=== PATIENT | male | born 1945 | race Caucasian/White ===

== ENCOUNTER 2017-06-25 13:12 | Outpatient (RCR) | payer MEDICARE, OTHER, SELFPAY ==
[2017-06-25 13:31] LABS: Prothrombin Time Fingerstick 22.3 SEC (11.9-14.4)
== END 2017-06-25 13:30 | disposition home or self-care (01) ==
LOC: LAB 13:12
PROVIDERS: Family Provider Family Medicine Geriatric Medicine; PCP Family Medicine Geriatric Medicine; Visit Provider Family Medicine Geriatric Medicine
DX: R69 Illness, unspecified (principal)
CPT/HCPCS: 36416; 85610

== ENCOUNTER 2017-08-03 12:24 | Outpatient (RCR) | payer MEDICARE, OTHER, SELFPAY ==
[2017-08-03 12:46] LABS: Prothrombin Time Fingerstick 33.1 SEC (11.9-14.4)
== END 2017-08-03 13:00 | disposition home or self-care (01) ==
LOC: LAB 12:24
PROVIDERS: Family Provider Family Medicine Geriatric Medicine; PCP Family Medicine Geriatric Medicine; Visit Provider Family Medicine Geriatric Medicine
DX: I48.0 Paroxysmal atrial fibrillation (principal)
CPT/HCPCS: 36416; 85610

== ENCOUNTER → 2017-08-07 10:02 | Outpatient (CLI) | payer MEDICARE, OTHER, SELFPAY ==
[2017-08-07 10:48] LABS: Absolute Lymphocyte Count 1.46 X10^3/ul (0.83-4.51); Basophil# 0.07 X10^3/uL; Basophil% 1.4 % (0-1); Eosinophil# 0.19 X10^3/uL; Eosinophils% 3.8 % (0-5); Hematocrit 40.8 % (40-54); Hemoglobin 14.4 g/dl (13.0-16.5); Lymphocyte # 1.46 X10^3/ul (4.0); Lymphocyte % 28.9 % (19-41); Mean Corp Hgb Conc 35.3 g/gl (32-36); Mean Corpuscular Hgb 31.5 pg (27.0-32.0); Mean Corpuscular Volume 89.3 fL (80-94); Mean Platelet Vol. 10.5 fl (6.2-12.0); Monocyte# 0.35 X10^3/uL; Monocyte% 6.9 % (0-10); Neutrophil # 2.97 X10^3/uL (2.7-7.7); Neutrophil % 58.8 % (47-70); Platelet Count 155 K/mm3 (150-450); RBC Distribution Width CV 13.6 % (11.6-14.6); RBC Distribution Width SD 43.7 fl (35.1-43.9); Red Blood Count 4.57 M/mm3 (4.6-6.2); White Blood Count 5.1 K/mm3 (4.4-11.0)
[2017-08-07 10:49] LABS: POSITIVE COUNT NO; POSITIVE DIFFERENTIAL NO; POSITIVE MORPHOLOGY NO
[2017-08-07 11:13] LABS: ALB/GLOB Ratio 0.8 RATIO (0.9-2.4); AST(SGOT) 22 U/L (15-37); Alanine Aminotransfer ALT/SGPT 21 U/L (16-61); Albumin, Serum 3.3 g/dL (3.2-5.0); Alkaline Phosphatase 108 U/L (45-117); Anion Gap 8 (5-15); BUN 20 mg/dL (7-18); BUN/Creat Ratio 13.7 RATIO (10-20); Calcium,Total 7.9 mg/dL (8.5-10.1); Chloride 97 mmol/L (98-107); Creatinine, Serum 1.46 mg/dL (0.70-1.30); EST Glomerular Filtration Rate 51 mL/min (>60); Est Glom Filt Rate - Afr Amer 61 mL/min (>60); Globulin 4.2 g/dL (2.2-4.2); Glucose 535 mg/dL (74-106); Potassium 4.5 mmol/L (3.5-5.1); Protein, Total 7.5 g/dL (6.4-8.2); Sodium Level 132 mmol/L (136-145); Thyroid Stim Hormone (TSH) 2.31 uIU/mL (0.358-3.74)
== END ==
PROVIDERS: Family Provider Family Medicine Geriatric Medicine; PCP Family Medicine Geriatric Medicine; Visit Provider Family Medicine Geriatric Medicine
DX: E11.9 Type 2 diabetes mellitus without complications (principal); I10 Essential (primary) hypertension
CPT/HCPCS: 36415; 80053; 84443; 85025

== ENCOUNTER 2017-10-07 13:47 | Outpatient (RCR) | payer MEDICARE, OTHER, SELFPAY ==
[2017-10-07 14:05] LABS: Prothrombin Time Fingerstick 27.5 SEC (11.9-14.4)
== END 2017-10-07 14:00 | disposition home or self-care (01) ==
LOC: LAB 13:47
PROVIDERS: Family Provider Family Medicine Geriatric Medicine; PCP Family Medicine Geriatric Medicine; Visit Provider Family Medicine Geriatric Medicine
DX: I48.0 Paroxysmal atrial fibrillation (principal)
CPT/HCPCS: 36416; 85610

== ENCOUNTER 2017-11-27 09:51 | Outpatient (RCR) | payer MEDICARE, OTHER, SELFPAY | END 2017-11-27 11:00 | disposition home or self-care (01) | LOC: LAB 09:51 | PROVIDERS: Family Provider Family Medicine Geriatric Medicine; PCP Family Medicine Geriatric Medicine; Visit Provider Family Medicine Geriatric Medicine | DX: I48.0 Paroxysmal atrial fibrillation (principal) | CPT/HCPCS: 36416; 85610 ==

== ENCOUNTER 2018-02-10 08:32 | Outpatient (RCR) | payer MEDICARE, OTHER, SELFPAY ==
[2018-02-10 08:50] LABS: Prothrombin Time Fingerstick 32.3 SEC (11.9-14.4)
[2018-02-10 12:40] LABS: Absolute Lymphocyte Count 1.76 X10^3/ul (0.83-4.51); Absolute Neutrophil Count 2.9 X10^3/uL (2.0-7.7); Basophil# 0.06 X10^3/uL; Basophil% 1.1 % (0-1); Eosinophil# 0.21 X10^3/uL; Hemoglobin 15.7 g/dl (13.0-16.5); Lymphocyte # 1.76 X10^3/ul (4.0); Lymphocyte % 33.3 % (19-41); Mean Corp Hgb Conc 35.7 g/gl (32-36); Mean Corpuscular Hgb 31.6 pg (27.0-32.0); Mean Corpuscular Volume 88.5 fL (80-94); Mean Platelet Vol. 11.3 fl (6.2-12.0); Monocyte# 0.38 X10^3/uL; Monocyte% 7.2 % (0-10); Neutrophil # 2.86 X10^3/uL (2.7-7.7); Neutrophil % 54.2 % (47-70); POSITIVE COUNT NO; POSITIVE DIFFERENTIAL NO; POSITIVE MORPHOLOGY NO; Platelet Count 161 K/mm3 (150-450); RBC Distribution Width SD 45.5 fl (35.1-43.9); Red Blood Count 4.97 M/mm3 (4.6-6.2); White Blood Count 5.3 K/mm3 (4.4-11.0)
[2018-02-10 13:11] LABS: Vitamin D,25 Hydroxy 14.1 ng/mL (29.95-100.01)
[2018-02-10 13:34] LABS: ALB/GLOB Ratio 0.9 RATIO (0.9-2.4); AST(SGOT) 17 U/L (15-37); Alanine Aminotransfer ALT/SGPT 23 U/L (16-61); Albumin, Serum 3.8 g/dL (3.2-5.0); Alkaline Phosphatase 98 U/L (45-117); Anion Gap 14 (5-15); BUN 24 mg/dL (7-18); BUN/Creat Ratio 15.2 RATIO (10-20); Calcium,Total 9.2 mg/dL (8.5-10.1); Chloride 96 mmol/L (98-107); Creatinine, Serum 1.58 mg/dL (0.70-1.30); EST Glomerular Filtration Rate 46 mL/min (>60); Est Glom Filt Rate - Afr Amer 56 mL/min (>60); Globulin 4.2 g/dL (2.2-4.2); Glucose 460 mg/dL (74-106); Potassium 4.3 mmol/L (3.5-5.1); Sodium Level 137 mmol/L (136-145); Thyroid Stim Hormone (TSH) 2.77 uIU/mL (0.358-3.74)
[2018-02-12 08:48] LABS: Hep C Antibodies <0.1 s/co ratio (0.0-0.9)
== END 2018-02-10 10:00 | disposition home or self-care (01) ==
LOC: LAB 08:32
PROVIDERS: Family Provider Family Medicine Geriatric Medicine; PCP Family Medicine Geriatric Medicine; Visit Provider Family Medicine Geriatric Medicine
DX: I48.0 Paroxysmal atrial fibrillation (principal); E11.9 Type 2 diabetes mellitus without complications; E55.9 Vitamin D deficiency, unspecified; I10 Essential (primary) hypertension; Z13.89 Encounter for screening for other disorder
CPT/HCPCS: 36416; 80053; 82306; 84443; 85025; 85610; 86803

== ENCOUNTER 2018-04-09 09:55 | Outpatient (RCR) | payer MEDICARE, OTHER, SELFPAY ==
[2018-04-09 10:06] LABS: Prothrombin Time Fingerstick 24.5 SEC (11.9-14.4)
== END 2018-04-30 11:31 | disposition home or self-care (01) ==
LOC: LAB 09:55
PROVIDERS: Family Provider Family Medicine Geriatric Medicine; PCP Family Medicine Geriatric Medicine; Referring Provider Family Medicine Geriatric Medicine; Visit Provider Family Medicine Geriatric Medicine
DX: I48.0 Paroxysmal atrial fibrillation (principal)
CPT/HCPCS: 36416; 85610

== ENCOUNTER 2018-06-09 11:18 | Outpatient (RCR) | payer MEDICARE, OTHER, SELFPAY ==
[2018-06-09 11:35] LABS: Prothrombin Time Fingerstick 19.9 SEC (11.9-14.4)
== END 2018-06-09 12:18 | disposition home or self-care (01) ==
LOC: LAB 11:18
PROVIDERS: Family Provider Family Medicine Geriatric Medicine; PCP Family Medicine Geriatric Medicine; Referring Provider Family Medicine Geriatric Medicine; Visit Provider Family Medicine Geriatric Medicine
DX: I48.0 Paroxysmal atrial fibrillation (principal)
CPT/HCPCS: 36416; 85610

== ENCOUNTER 2018-08-18 13:12 | Outpatient (RCR) | payer MEDICARE, OTHER, SELFPAY ==
[2018-08-18 13:25] LABS: Prothrombin Time Fingerstick 27.4 SEC (11.9-14.4)
== END 2018-08-18 14:12 | disposition home or self-care (01) ==
LOC: LAB 13:12
PROVIDERS: Family Provider Family Medicine Geriatric Medicine; PCP Family Medicine Geriatric Medicine; Referring Provider Family Medicine Geriatric Medicine; Visit Provider Family Medicine Geriatric Medicine
DX: I48.0 Paroxysmal atrial fibrillation (principal)
CPT/HCPCS: 36416; 85610

== ENCOUNTER 2019-02-04 15:11 | Outpatient (RCR) | payer MEDICARE, OTHER, SELFPAY ==
[2019-02-04 16:09] LABS: Prothrombin Time Fingerstick 23.8 SEC (11.9-14.4)
== END 2019-02-04 16:00 | disposition home or self-care (01) ==
LOC: LAB 15:11
PROVIDERS: Family Provider Family Medicine Geriatric Medicine; PCP Family Medicine Geriatric Medicine; Referring Provider Family Medicine Geriatric Medicine; Visit Provider Family Medicine Geriatric Medicine
DX: I48.0 Paroxysmal atrial fibrillation (principal)
CPT/HCPCS: 36416; 85610

== ENCOUNTER → 2019-02-11 08:36 | Outpatient (CLI) | payer MEDICARE, OTHER, SELFPAY ==
[2019-02-11 12:18] LABS: Absolute Lymphocyte Count 1.86 X10^3/uL (0.83-4.51); Absolute Neutrophil Count 3.6 X10^3/uL (2.0-7.7); Basophil# 0.05 X10^3/uL; Basophil% 0.8 % (0-1); Eosinophils% 3.2 % (0-5); Hematocrit 46.1 % (40-54); Hemoglobin 15.9 g/dL (13.0-16.5); Lymphocyte # 1.86 X10^3/ul (4.0); Lymphocyte % 29.9 % (19-41); Mean Corp Hgb Conc 34.5 g/dL (32-36); Mean Corpuscular Hgb 30.4 pg (27.0-32.0); Mean Corpuscular Volume 88.1 fL (80-94); Mean Platelet Vol. 11.2 fl (6.2-12.0); Monocyte# 0.44 X10^3/uL; Monocyte% 7.1 % (0-10); NRBC Flagged by Analyzer 0 % (0-5); Neutrophil # 3.64 X10^3/uL (2.7-7.7); Neutrophil % 58.5 % (47-70); Platelet Count 158 K/mm3 (150-450); RBC Distribution Width CV 13.6 % (11.6-14.6); RBC Distribution Width SD 43.8 fl (35.1-43.9); Red Blood Count 5.23 M/mm3 (4.6-6.2); White Blood Count 6.2 K/mm3 (4.4-11.0)
[2019-02-11 13:21] LABS: Vitamin D,25 Hydroxy 10.3 ng/mL (29.95-100.01)
[2019-02-11 14:59] LABS: ALB/GLOB Ratio 0.8 RATIO (0.9-2.4); AST(SGOT) 17 U/L (15-37); Alanine Aminotransfer ALT/SGPT 22 U/L (16-61); Albumin, Serum 3.5 g/dL (3.2-5.0); Alkaline Phosphatase 84 U/L (45-117); Anion Gap 9 (5-15); BUN 21 mg/dL (7-18); BUN/Creat Ratio 16.4 RATIO (10-20); Calcium,Total 8.8 mg/dL (8.5-10.1); Chloride 106 mmol/L (98-107); Creatinine, Serum 1.28 mg/dL (0.70-1.30); EST Glomerular Filtration Rate 59 mL/min (>60); Est Glom Filt Rate - Afr Amer 71 mL/min (>60); Globulin 4.2 g/dL (2.2-4.2); Glucose 328 mg/dL (74-106); Protein, Total 7.7 g/dL (6.4-8.2); Sodium Level 140 mmol/L (136-145)
== END ==
PROVIDERS: Family Provider Family Medicine Geriatric Medicine; PCP Family Medicine Geriatric Medicine; Visit Provider Family Medicine Geriatric Medicine
DX: E11.9 Type 2 diabetes mellitus without complications (principal); I10 Essential (primary) hypertension; E55.9 Vitamin D deficiency, unspecified
CPT/HCPCS: 36415; 80053; 82306; 84443; 85025

== ENCOUNTER 2019-05-10 13:25 | Outpatient (RCR) | payer MEDICARE, OTHER, SELFPAY ==
[2019-05-11 09:30] LABS: Prothrombin Time Fingerstick 16.8 SEC (11.9-14.4)
== END 2019-05-10 18:00 | disposition home or self-care (01) ==
LOC: LAB 13:25
PROVIDERS: Family Provider Family Medicine Geriatric Medicine; PCP Family Medicine Geriatric Medicine; Referring Provider Family Medicine Geriatric Medicine; Visit Provider Family Medicine Geriatric Medicine
DX: I48.0 Paroxysmal atrial fibrillation (principal)
CPT/HCPCS: 36416; 85610

== ENCOUNTER 2020-02-22 16:50 | Inpatient (IN) | payer MEDICARE, OTHER, SELFPAY ==
[2020-02-22 17:03] VITALS: BP 119/56; PULSE 62; RESP 16; TEMP 36.5; O2SAT 98; BMI 33.6; BMI 33.7
[2020-02-22 18:11] LABS: Bedside Glucose 232 mg/dL (70-110)
[2020-02-22] MEDS: Insulin Lispro 100 UNIT/ML INSULN.PEN SC (21:24)
[2020-02-22] MEDS: Carvedilol 12.5 MG Tablet PO (21:29)
[2020-02-22] MEDS: levETIRAcetam 1,000 MG Tablet 1000 MG PO (21:29)
[2020-02-22] MEDS: Atorvastatin Calcium 40 MG Tablet PO (21:29)
[2020-02-22] MEDS: Na Biphos/Potassium Phosphate PACKET 1 PACKET PO (21:30)
[2020-02-22] MEDS: Senna/Docusate Sodium 1 Tablet PO (21:30)
[2020-02-22 22:00] VITALS: BP 124/56; PULSE 68; RESP 17; TEMP 36.6; O2SAT 99
[2020-02-22 23:06] LABS: Bedside Glucose 280 mg/dL (70-110)
--- NOTE | 2020-02-23 05:07 | NURSING ---
first bladder scan completed and value was 698cc, pt be straight cathed as per protocol
--- NOTE | 2020-02-23 05:38 | NURSING ---
Pt BS for 698 mL after toileting. Straight cathed 1,080mL urine output with 0mL BS. Pt tolerated well.
[2020-02-23 06:00] LABS: Absolute Lymphocyte Count 1.38 X10^3/uL (0.83-4.51); Absolute Neutrophil Count 4.3 X10^3/uL (2.0-7.7); Basophil# 0.04 X10^3/uL; Basophil% 0.6 % (0-1); Eosinophil# 0.16 X10^3/uL; Eosinophils% 2.4 % (0-5); Hematocrit 29.4 % (40-54); Hemoglobin 9.9 g/dL (13.0-16.5); Lymphocyte # 1.38 X10^3/ul (4.0); Lymphocyte % 20.9 % (19-41); Mean Corp Hgb Conc 33.7 g/dL (32-36); Mean Corpuscular Hgb 29.3 pg (27.0-32.0); Mean Platelet Vol. 8.9 fl (6.2-12.0); Monocyte# 0.69 X10^3/uL; Monocyte% 10.5 % (0-10); NRBC Flagged by Analyzer 0 % (0-5); Neutrophil # 4.28 X10^3/uL (2.7-7.7); Neutrophil % 64.8 % (47-70); Platelet Count 149 K/mm3 (150-450); RBC Distribution Width CV 16.9 % (11.6-14.6); RBC Distribution Width SD 52.6 fl (35.1-43.9); Red Blood Count 3.38 M/mm3 (4.6-6.2); White Blood Count 6.6 K/mm3 (4.4-11.0)
[2020-02-23 06:37] LABS: Anion Gap 6 (5-15); BUN 26 mg/dL (7-18); BUN/Creat Ratio 21.1 RATIO (10-20); Calcium,Total 8.7 mg/dL (8.5-10.1); Chloride 102 mmol/L (98-107); Creatinine, Serum 1.23 mg/dL (0.70-1.30); EST Glomerular Filtration Rate 61 mL/min (>60); Est Glom Filt Rate - Afr Amer 74 mL/min (>60); Estimated Creatinine Clearance 59.55 ml/min; Glucose 222 mg/dL (74-106); Magnesium 2.1 mg/dL (1.6-2.6); Phosphorus 2.8 mg/dL (2.5-4.9); Potassium 4.3 mmol/L (3.5-5.1); Sodium Level 134 mmol/L (136-145)
[2020-02-23 07:31] LABS: Bedside Glucose 247 mg/dL (70-110)
--- NOTE | 2020-02-23 08:13 | NURSING ---
pt called out requesting breakfast and when told that was npo for poss speech aba became very upset at mold laminator. stated, you got to be shitting me?? i ate last night!? then became angry at staff lashing out and told mold laminator to 'get the fuck out of here then! attempting to reach speech and dr. arizmendi regarding.
[2020-02-23 09:41] VITALS: BP 137/72; PULSE 76; RESP 16; TEMP 36.9; O2SAT 94
[2020-02-23] MEDS: Insulin Lispro 100 UNIT/ML INSULN.PEN SC ×3 (10:07→16:58)
[2020-02-23] MEDS: Carvedilol 12.5 MG Tablet PO (10:08)
[2020-02-23] MEDS: Losartan Potassium 100 MG Tablet PO (10:08)
[2020-02-23] MEDS: levETIRAcetam 1,000 MG Tablet 1000 MG PO (10:08)
[2020-02-23] MEDS: Na Biphos/Potassium Phosphate PACKET 1 PACKET PO (10:08)
--- NOTE | 2020-02-23 10:33 | PCM.HP.STD ---
Problem List (1) Subdural hematoma Status: Acute Comment: BL (2) Hx of craniotomy Status: Acute Comment: on 02/15/20 at [facility] for subdural hematomas with brain compression (3) Anemia Status: Acute Qualifiers: Anemia type: unspecified type Qualified Code(s): D64.9 - Anemia, unspecified (4) BPH (benign prostatic hyperplasia) Status: Chronic Qualifiers: Lower urinary tract symptom presence: symptoms present Lower urinary tract symptom detail: incomplete bladder emptying Qualified Code(s): N40.1 - Benign prostatic hyperplasia with lower urinary tract symptoms; R39.14 - Feeling of incomplete bladder emptying (5) DM (diabetes mellitus), type 2 Status: Chronic Qualifiers: Diabetes mellitus exterminator helper insulin use: with exterminator helper use Diabetes mellitus complication status: with hyperglycemia Qualified Code(s): E11.65 - Type 2 diabetes mellitus with hyperglycemia; 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 Ablation for SVT in October 2010. (16) Tobacco dependence in remission Status: Chronic Comment: quit in 1971. Has a 10 Pack year hx. (17) Chronic anticoagulation Status: Chronic Comment: on warfarin (18) Non-compliance Status: Chronic Comment: with diet (19) Obesity (BMI 30.0-34.9) Status: Chronic (20) History of permanent cardiac pacemaker placement Status: Chronic (21) LVH (left ventricular hypertrophy) Status: Chronic (22) LAE (left atrial enlargement) Status: Acute Comment: mild (23) Thrombocytopenia Status: Acute (24) Hyponatremia Status: Acute (25) Chronic renal failure, stage 3 (moderate) Status: Chronic (26) Abnormal tilt table test Status: Inactive Comment: in the past (27) AICD (automatic cardioverter/defibrillator) present Status: Chronic (28) Poor dentition Status: Chronic History of Present Illness Date of Admission: 02/22/20 Chief Complaint: Debility due to recent BL craniotonies for BL subdural hematomas with brain compression and AMS, dysarthria, dysphagia, focal seizures and encephalopathy. Transferred from [facility] Mr. Proctor is a 74 year old M with a past medical history of hypertension, diabetes mellitus type 2, BPH, idiopathic normal pressure hydrocephalus, history of TRADER FIXED INCOME shunt in 2010, obesity, VTE with PE and DVT on chronic anticoagulation with warfarin, ventricular ectopy, SVT, 2 ablations for ventricular ectopy and one ablation for SVT, history of pacemaker implantation, nonischemic cardiomyopathy with a 45% ejection fraction in 2014, chronic renal failure stage III, tobacco dependence in remission (quit in 1971), left ventricular hypertrophy and mild left atrial enlargement presented to the emergency department at [facility] on 02/13/2020 with confusion, dysarthria and twitching of his face. CT scan of the head showed bilateral subdural hematomas and he was transferred to [facility]. At presentation to [facility] he had continuous left facial twitching and was started on Keppra for seizures. On 02/15/2020 he underwent bilateral craniotomies to evacuate the hematomas and relieve brain compression. He was transferred to the acute rehab unit at [facility] on 02/22/2024 greater than 3 hours of therapy daily to restore him at or near his prior level of independence. Past Medical History Past Medical History (Chronic Problems): Chronic Problems BPH (benign prostatic hyperplasia) (Chronic) DM (diabetes mellitus), type 2 (Chronic) History of ventriculoperitoneal shunting (Chronic) 2010 for NPH Cardiomyopathy (Chronic) non-ischemic. 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 Ablation for SVT in October 2010. 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 Has a 10 Pack year hx. Chronic anticoagulation (Chronic) on warfarin Non-compliance (Chronic) with diet Obesity (BMI 30.0-34.9) (Chronic) History of permanent cardiac pacemaker placement (Chronic) LVH (left ventricular hypertrophy) (Chronic) Chronic renal failure, stage 3 (moderate) (Chronic) AICD (automatic cardioverter/defibrillator) present (Chronic) Poor dentition (Chronic) Allergies ceftriaxone Allergy (Verified 01/26/15 13:00) Hives fish oil Allergy (Verified 02/13/15 07:50) Unknown Gadolinium-MRI Contrast Medium [CONTRAST] Allergy (Verified 02/13/15 07:50) Anaphylaxis Home Medications: Ambulatory Orders Medication Instructions Recorded Aspirin [Aspirin, Baby] 81 mg PO DAILY@0800 01/26/15 Atorvastatin Calcium [Lipitor] 80 mg PO QHS 01/26/15 Carvedilol [Coreg (Beta Leigh)] 12.5 mg PO BID 01/26/15 Insulin U-500 [Humulin R U-500 20 units SC BIDAC 01/26/15 ([facility])] Losartan Potassium [Cozaar] 100 mg PO DAILY 01/26/15 Warfarin Sodium [Coumadin] 10 mg PO TUTH 01/26/15 Warfarin [Coumadin] 7.5 mg PO SUMOWEFRSA 01/26/15 Magnesium l-Lactate [Mag-Tab Sr] 84 mg PO DAILY #30 tablet.er 01/27/15 Furosemide [Lasix] 40 mg PO DAILY 02/13/15 Glucosam/Mohamud-Msm1/C/Isac/Bosw 1 each PO BID 02/13/15 [Glucosamine-Chondroitin Tablet] Surgical History: - - Ablation in October of 2010 for SVT, ablations for ventricular ectopy in January 2011 and September 2011. TRADER FIXED INCOME shunt in 2010. Psychiatric History: No pertinent psych hx Lives: Spouse/ Significant Other - Fiona Smoking Status: Former smoker - quit in 1971 Tobacco Use: Cigarettes Alcohol: None Drugs: None - *Family History Maternal History Items: Diabetes, High Cholesterol, Heart Disease, Hypertension, - - Thyroid disease Paternal History Items: Heart Disease, Hypertension Sibling History Items: Heart Disease - His brother has had several MIs. Offspring History Items: - - hjis son has also had blood clots Review of Systems Constitutional: Reports: Weakness. Denies: Anorexia, Chills, Fever, Weight Change Eyes: Denies: Vision Change HEENT: Reports: Head Aches. Denies: Difficulty Hearing, Difficulty Swallowing, Nasal Congestion, Sinus Congestion, Sinus Drainage, Sore Throat Cardiovascular: Reports: Edema. Denies: Chest Pain, Light Headedness, Orthopnea, Palpitations Respiratory: Reports: Shortness of breath upon exertion. Denies: Cough, Shortness of breath at rest, Sputum production Gastrointestinal: Denies: Abdominal Pain, Constipation, Diarrhea, Nausea, Vomiting Genitourinary: Reports: Nocturia - X1 at home. He denies hesitancy, dribbling, hematuria, urinary incontinence.. Denies: Dysuria, Hematuria, Hesitancy, Incontinence, Urgency Musculoskeletal: Denies: Joint Pain, Joint Tenderness, Muscle pain, Neck Pain Skin: Reports: Jaundice, Wounds - he has BL craniotomy incisions temporal occipital areas. Denies: Rash Neurological: Reports: Balance problems, Seizures - new onset due to BL SDH's and brain compression. Denies: Double vision, Change in Speech, Slurred speech, Focal weakness, Numbness, Tingling Psychiatric: Denies: Anxiety, Depression, Homicidal Ideations, Suicidal Ideations Endocrine: Denies: Hx of Thyroiditis Hematologic/ Lymphatic: Reports: Hx of blood clot. Denies: Easy Bruising, Easy Bleeding VTE Information - Inpt Only VTE Present on Admission: No VTE Mechan Device Prophylaxis: SCD's, Knee High ANDREAS Hose VTE Pharm Prophylaxis ordered?: No Reason prophylaxis not ordered:: Treatment Not Indicated - He just had BL craniotomies for BL subdural hematomas. He is to have no anticoagulation until he is seen in follow up by the neurosurgeon Patient Problems: Active and Suspected Problems Subdural hematoma (Acute) BL Hx of craniotomy (Acute) BL on 02/15/20 at [facility] for BL subdural hematomas with brain compression Anemia (Acute) Dysphagia (Acute) Seizure disorder (Acute) due to BL SDH's with brain compressions Urine retention (Acute) LAE (left atrial enlargement) (Acute) mild Thrombocytopenia (Acute) Hyponatremia (Acute) - Physical Exam Vitals/I&O's: Vital Signs Temp Pulse Resp BP Pulse Ox 98.4 F 76 16 137/72 H 94 02/23/20 09:41 02/23/20 09:41 02/23/20 09:41 02/23/20 09:41 02/23/20 09:41 Oxygen Delivery Method Room Air Weight: 255 lb 3.2 oz Body Mass Index (BMI) 33.6 Intake and Output for Last 24 Hours 02/21/20 02/22/20 02/23/20 23:59 23:59 23:59 Intake Total 180 / 300 120 / 120 Output Total 1580 / 1580 Balance 180 / 0 -1460 / -1460 General: Alert, Oriented x3, Cooperative, No apparent distress, Well developed, Well nourished, - - sitting in the recliner at the bedside. He speaks to me with his eyes closed the whole time. He is irritable. His affect is very flat. HEENT: Atraumatic, PERRLA, EOMI, Normocephalic, - - The hub of the TRADER FIXED INCOME shunt is present under the skin of the R frontal area. Oral: Dry Mucosa, - - many missing and broken off teeth Neck: Supple, No JVD, Negative Carotid Bruits, No Nodes, No Nuchal Rigidity, Trachea Midline Lungs: Clear to auscultation, No rhonchi, No wheeze, No rales, Diminished Cardiovascular: Regular rate, Regular Rhythm, Normal S1, Normal S2, No murmurs, No Ectopic Activity, No rub noted, No Gallop Abdomen: Bowel Sounds Present, Soft, Non Tender, Non-Distended, Obese Extremities: No clubbing, No cyanosis, Capillary Refill Less than 3 Seconds, No Calf Tenderness, Diminished Peripheral Pulses - In the feet. The radial pulses are 3/3 BL, Edema Skin: No rashes, No breakdown Musculoskeletal: No Tenderness to Palpation of Joints or Extremities, No Muscle Wasting, Arthritic Changes Neurological: Cranial nerves II-XII grossly intact, Neuro grossly intact Psych/Mental Status: Flat Affect, Depressed Laboratory Results 02/22/20 18:04: POC Glucose 232 H 02/22/20 21:24: POC Glucose 280 H 02/23/20 05:42: WBC 6.6, RBC 3.38 L, Hgb 9.9 L, Hct 29.4 L, MCV 87.0, MCH 29.3, MCHC 33.7, RDW Std Deviation 52.6 H, RDW Coeff of Crys 16.9 H, Plt Count 149 L, MPV 8.9, Immature Gran % (Auto) 0.800, Neut % (Auto) 64.8, Lymph % (Auto) 20.9, [place] % (Auto) 10.5 H, Eos % (Auto) 2.4, Baso % (Auto) 0.6, Absolute Neuts (auto) 4.3, Absolute Lymphs (auto) 1.38, Nucleated RBC % 0 02/23/20 05:42: Sodium 134 L, Potassium 4.3, Chloride 102, Carbon Dioxide 26.0, Anion Gap 6, BUN 26 H, Creatinine 1.23, Estim Creat Clear Calc 59.55, Est GFR (MDRD) Af Amer 74, Est GFR (MDRD) Non-Af 61, BUN/Creatinine Ratio 21.1 H, Glucose 222 H, Calcium 8.7, Phosphorus 2.8, Magnesium 2.1 02/23/20 07:24: POC Glucose 247 H Current Medications Acetaminophen (Tylenol) 650 mg PO Q4H PRN PRN PRN Reason: Pain Score 1-10/10 Atorvastatin Calcium (Lipitor) 40 mg PO QHS REPLACED BY [facility] Last Admin: 02/22/20 21:29 Dose: 40 mg Documented by: Bisacodyl (Dulcolax) 10 mg RECTAL .PRN X 1 PRN PRN Reason: Constipation Carvedilol (Coreg) 12.5 mg PO BID REPLACED BY [facility] Last Admin: 02/23/20 10:08 Dose: 12.5 mg Documented by: Dextrose (D50w Syringe) 0 gm IV X1 PRN; Protocol PRN Reason: Hypoglycemia Glucagon () 1 mg IM .X1 PRN PRN Reason: Hypoglycemia Insulin Glargine (Lantus ([facility])) 10 units SC BREAKFAST REPLACED BY [facility] Last Admin: 02/23/20 10:07 Dose: 10 u Documented by: Insulin Human Lispro (Humalog Kwikpen ([facility])) 0 unit SC ACHS REPLACED BY [facility]; Protocol Last Admin: 02/23/20 10:07 Dose: 4 u Documented by: Levetiracetam (Keppra Tablet) 1,000 mg PO BID REPLACED BY [facility] Last Admin: 09/24/20 10:08 Dose: 1,000 mg Documented by: Losartan Potassium (Cozaar) 100 mg PO DAILY REPLACED BY [facility] Last Admin: 02/23/20 10:08 Dose: 100 mg Documented by: Magnesium Hydroxide (Milk Of Magnesia) 30 ml PO .PRN X 1 PRN PRN Reason: Constipation Nitroglycerin (Nitrostat) 0.4 mg SUBLINGUAL Q5M PRN PRN Reason: CARDIAC/CHEST PAIN Potassium Phos/Sodium Phos (Neutra-Phos Packet) 1 packet PO BID REPLACED BY [facility] Last Admin: 02/23/20 10:08 Dose: 1 packet Documented by: Senna/Docusate Sodium (Senokot-S, Ruthann-Colace) 1 tablet PO BID REPLACED BY [facility] Last Admin: 02/23/20 10:05 Dose: Not Given Documented by: Tamsulosin HCl (Flomax) 0.4 mg PO DAILY@1730 REPLACED BY [facility] Assessment/Plan All Active Problems Subdural hematoma (Acute) Hx of craniotomy (Acute) Anemia (Acute) Dysphagia (Acute) Seizure disorder (Acute) Urine retention (Acute) LAE (left atrial enlargement) (Acute) Thrombocytopenia (Acute) Hyponatremia (Acute) CHF exacerbation (Acute) SOB (shortness of breath) (Acute) Impressions 1. Debility secondary to recent bilateral subdural hematomas requiring bilateral craniotomies to evacuate the hematomas and relieve brain compression. Neurologic symptoms included confusion, dysarthria, dysphagia and focal seizures. 2. chronic anticoagulation for recurrent DVT's/PE - with Warfarin 3. HX of ventricular ectopy and SVT - has had a total of 3 ablations 4. hx of PM/AICD 5. 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 Hypertension 7. Diabetes mellitus type 2 8. History of BPH on Flomax-the first post void residual was greater than 1000. 9. History of a positive tilt table test in the past 10. Obesity 11. New onset seizure disorder secondary to bilateral subdural hematomas with compression of the brain 12. Normal pressure hydrocephalus-idiopathic 13. History of TRADER FIXED INCOME shunt placed in 2010 14. Acute normochromic normocytic anemia-more likely than not secondary to blood loss 15. Dysphagia 16. Left ventricular hypertrophy and mild left atrial enlargement on echocardiogram in 2014 17. Mild thrombocytopenia 18. Very poor dentition with multiple missing teeth and many broken off. 19. Chronic renal failure stage III 20. Tobacco dependence in remission-quit in 1971 PLAN PT for gait stability OT for ADL's ST for evaluation Analgesics as needed Bowel protocol Fall precautions Assess for Anxiety/Depression GI prophylaxis not necessary at this time as he is asymptomatic and has no history of peptic ulcer disease DVT prophylaxis with ANDREAS hart and SCDs. Neurosurgery wants no anticoagulants, even DVT prophylaxis, until he is seen again in the office. Follow up with PCP, neurosurgery following DC from [facility] AM lab reviewed including CMP, CBC, Mag and Phos Hemoglobin A1c Consider an antidepressant-will discuss with the patient and his going forward Continue to check PVRs and if his retention continues will need a Khan catheter and adjustment in medications for BPH Sliding scale insulin to keep blood sugars less than 130 fasting and less than 180 postprandial He admits to following no diet at home and he also does not check his BS's We discussed having a dialogue with his dentist regarding pulling his carious teeth. He has a TRADER FIXED INCOME shunt and also a pacemaker/AICD and with poor dentition and multiple missing and broken off teeth he is at risk for infection. Request records from Dr. Ketty Partida - his PCP in [facility] may be making him tired and can cause change in affect......continue to monitor Inpatient E&M: [id number] Init Hosp L3
[2020-02-23 11:50] LABS: Bedside Glucose 325 mg/dL (70-110)
--- NOTE | 2020-02-23 14:40 | REHABEVAL_ITS ---
Admission Information Primary Diagnosis:: Debility secondary to recent bilateral subdural hematomas with brain compression requiring bilateral craniotomies at [facility]. Status Changes from Prescreening?: No changes Identified Actual Problem List:: Bleeding, Skin Intergrity, Pain, ALteration in Cmfrt, Depression, Mobility Impaired, Self Care Deficit, Diabetes, Hyperglycemia, BP, Hypertension, Fluid Change-Dehydration, Alteration-Leisure Activ. Potential Problem List:: DVT, Bleeding, Infection, UTI, Aspiration, Falls, Skin Integrity, Depression Risk of Complications DVT: ANDREAS Hose, Sequential Compression Device Bleeding: Monitor Lab Values, Nursing to Teach Precautions for anti-coagulation therapy., Wound, if applicable, to be assessed every shift., Stroke patients assessed for lethargy or change in status. Infection: Clinical Staff to Monitor for S/S of infection:, S/S of infection include fever, redness, warmth, etc. Urinary Tract Infection: Monitor for frequency, burning, discomfort, or incontinence., Nursing will obtain urine sample for urinalysis and C&S when ordered. Aspiration: Clinical staff will monitor for coughing, drooling, congestion., Speech will evaluate swallowing and dsyphasia., Nursing will monitor patient swallowing during meals. Falls: Patient will be evaluated for Fall Precautions, Patient will be placed on Fall Precautions as indicated per protocol. Skin Breakdown: Nursing will assess skin daily using assessment tool., Nursing will place on Skin Breakdown Precautions as indicated. Pain: Clinical staff will assess patient's pain level per protocol., Medications will be given, if needed, and the pain level reassessed., Other methods: Massage, distraction, decrease stimulus, etc. used PRN. Plan of Care Patient requires physician specializing in physical medicine and rehab oversight to provide close medical supervision of rehab issues including: Pain Management, Sleep Problems, Bowel and Bladder, Medical and co-morbidity Management, DVT prophylaxis, Rehabilitation Leadership, Coordination of treatment team Patient needs Physical Therapy: For a minimum of 1 hour, At least 5 out of 7 days Patient needs Physical Therapy to improve:: Mobility, Mobility, Mobility, Strengthening, Transfers, Stretching, ROM, Endurance, Stairs, Gait, Balance Patient needs Occupational Therapy: For a minimum of 1 hour, At least 5 out of 7 days Patient needs Occupational Therapy to improve ADL's incl.: Eating, Grooming, Bathing, Dressing, Toileting, Toilet transfers, Community Reintegration, Higher functioning activities, Household tasks, Adaptive Equipment, Splinting, Other activities as determined Patient requires speech therapy: For a minimum of 1 hour, At least 5 out of 7 days Patient requires speech therapy for: Swallowing, Cognition, Language Skills, Compensatory Strategies Patient requires 24/7 Rehabilitation Nursing for: Pain Issues, Identifying and preventing risk factors, Monitoring and reporting current medical conditions, Assisting with ambulation, transfer, and all ADL's, Teaching patients about disease process and medications, Family teaching, Providing safe environment, Bowel and Bladder Issues, Skin integrity, Medication Management Patient needs Siebel Architect/ Case Management for: Discharge Planning, Arranging Home Equipment or Services, Family Interventions Patient needs Dietary and Nutrition Services for: Adequate Nutrition, Nutritional Supplements, Nutritional Education Goals Patient will remain: free from falls, or injury at time of discharge. Patient will perform bed mobility at: MOD I level of assist. Patient will complete transfers from bed to chair at: MOD I level of assist. Patient will ambulate: 100 feet, with MOD I assist, with LRD Patient will complete upper body dressing at: MOD I level of assist. Patient will complete lower body dressing at: MOD I level of assist. Patient will complete toileting at: MOD I level of assist. Patient will perform bathing at: MOD I level of assist. Patient will complete grooming at: MOD I level of assist. Patient will complete home management skills at: MOD I level of assist. Patient will achieve: 12 stairs, at MOD I assist Patient will have pain level of: of 3 or less Patient's skin will: remain intact, free from infection. Patient will receive: adequate nutrition. Discharge Planning Pt Prognosis for Sig. Practical Improv. w/in Reasonable Time: Good Estimated Length of stay (days): 12 Anticipated D/C Destination: Home Was Preadmission Assessment Accurate?: Yes
[2020-02-23 15:46] LABS: AST(SGOT) 19 U/L (15-37); Alanine Aminotransfer ALT/SGPT 13 U/L (16-61); Albumin, Serum 2.7 g/dL (3.2-5.0); Alkaline Phosphatase 110 U/L (45-117); Bilirubin, Direct 0.15 mg/dL (0.00-0.30); Globulin 4.5 g/dL (2.2-4.2); Protein, Total 7.2 g/dL (6.4-8.2)
[2020-02-23 16:19] LABS: Hemoglobin A1c 7.7 % (3.8-5.6)
[2020-02-23 16:55] LABS: Bedside Glucose 279 mg/dL (70-110)
[2020-02-23] MEDS: Tamsulosin HCl 0.4 MG Capsule PO (16:58)
[2020-02-23 19:21] VITALS: BP 131/60; PULSE 70; RESP 18; TEMP 37.1; O2SAT 95
--- NOTE | 2020-02-23 21:30 | NURSING ---
PT TOOK A SWING AT THIS NURSE WHEN NURSE APPROACHED PT TO CHECK bs LEVEL. pT GRUFFLLY TOLD STAFF TO LEAVE HIM ALONE AND HE IS SICK AND TIRED OF STAFF STICKING HIM WITH NEEDLES. NURSE TOLD PT THAT WE ARE MONITORING HIS BS LEVEL AND PROVIDING INSULIN FOR PT BENEFIT. PT TOLD STAFF THAT EVERY TIME HE GETS STUCK, IT COSTS HIM $100! tHIS NURSE TRIED TO REASON WITH PT AND PT SAID i AM BOTHERING HIM. tHIS NURSE ASKED IF HE WAS REFUSING THE BS CHECK AND EVENING MEDS. PT WAS TOLD TO GET OUT OF PT ROOM. THIS NURSE PUT EVENING MEDS BACK IN MED DRAWER AND MARKED MEDS AND BS CHECK REFUSED. PT HAS BEEN UNNECESSARILY UNPLEASANT TO STAFF THIS HS. PT IS RECLINING IN BED WITH EYES CLOSED & TV ON.
[2020-02-24 07:10] LABS: Bedside Glucose 293 mg/dL (70-110)
[2020-02-24 07:26] VITALS: BP 107/60; BP 119/72; BP 124/61; PULSE 65; PULSE 66; PULSE 77
[2020-02-24] MEDS: Insulin Lispro 100 UNIT/ML INSULN.PEN SC ×4 (07:54→17:05)
[2020-02-24] MEDS: Carvedilol 12.5 MG Tablet PO ×2 (07:59→19:36)
[2020-02-24] MEDS: Losartan Potassium 100 MG Tablet PO (07:59)
[2020-02-24] MEDS: levETIRAcetam 1,000 MG Tablet 1000 MG PO ×2 (07:59→19:36)
[2020-02-24] MEDS: Na Biphos/Potassium Phosphate PACKET 1 PACKET PO ×2 (08:00→19:36)
[2020-02-24 10:00] VITALS: BP 120/74; PULSE 65; RESP 16; TEMP 36.8; O2SAT 97
--- NOTE | 2020-02-24 10:40 | PN_ITS ---
Progress Note Juan was seen with his today to discuss why he is here and what is expected of him. Afebrile Vital signs are stable. No orthostatic hypotension today. Maintaining appropriate oxygen saturation on room air Oral intake yesterday was 1450. He continues to retain urine......> 800 this morning. Khan has been ordered and will increase the Flomax to BID. He had a BM today I reviewed the blood sugar record. Blood sugars are not adequately controlled. Patient refused insulin last night and his fasting sugar today was 293. He also refused Keppra last night. Nursing was able to get him to take his pills today. Hemoglobin A1c was 7.7. The HGBA1C was 11.4 in September of this year. Creat was 1.1 in July of 2019.....I suspect the increase in the Creat is due to urine retention. Alert, oriented x3, no apparent distress Mucous membranes are dry-patient instructed to increase his fluid intake Lungs-clear to auscultation with good air exchange Heart-regular rate and rhythm, no gallop, no rub, no murmur, no ectopy Abdomen-soft, nontender, normal bowel sounds Edema of the left lower extremity but no edema of the right lower extremity Mood-depressed mood, flat affect, does not make eye contact, frequently has his eyes closed when he is talking to you, blinds are drawn in the room We had a meeting with Juan and his Fiona, the SE and the charge nurse in his room that lasted 1 hour. I explained to him what happened that lead to his admission to [facility] and why he had craniotomies and not bur holes. I explained that he had compression of the brain and he has had some cognitive decline. I explained why he needs a catheter and why he has urine retention. I explained that while in the rehab unit he needs to do 3 hours of therapy daily. He wants me to give him a date when he will be ready to go home and I explained we evaluate him day to day and it depends on how quickly he progresses with therapy. We discussed how most patients with stroke or brain injury experience depression and I listed many of the symptoms of depressions and he immediately said he is not depressed. I told him I have observed depressed mood, flat affect, irritability, lack of motivation to do therapy, refusal of medications, decreased appetite and he reiterated he is not depressed. Refuses to try an antidepressant at this time. He refused to do the depression assessment tool with the SW. Fiona is somewhat defensive and irritated. I explained that our purpose in rehab is to get him stronger so that he can return home and asked him if we could do anything that would help him adjust to life on the rehab unit. He would like his HS medications before 9 PM since this is the time he normally goes to bed. We agreed to give the meds at 8 PM. Impressions 1. Debility secondary to recent bilateral subdural hematomas and brain compression resulting in craniotomy bilaterally to evacuate the clots and relieve compression. 2. Generalized weakness 3. Diabetes mellitus type 2 uncontrolled..... Hemoglobin A1c is 7.7 4. Obstructive uropathy secondary to prostatic enlargement with urine retention 5. History of nonischemic cardiomyopathy-doing well off diuretics and with no fluid restriction. 6. Depression-resistant to an antidepressant 7. 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 I recommended he follow-up with a dentist as soon as possible post discharge 8. 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 SW is going to screen him for depression today. DC Lantus and start Humalog 70/25 insulin, 26 units in the a.m. and 15 units in the p.m. Discontinue the at bedtime SSI but continue with the SSI TID prior to meals. Prior to admission to [facility] he was on oral agents (2) for diabetes. He came to use on Lantus and a sliding scale. Increase the Flomax to BID and recheck orthostatics for the next 3 days.....if they remain negative add Proscar. Voiding trial early next week Inpatient E&M: [id number] [facility] L3
[2020-02-24 11:16] LABS: Bedside Glucose 312 mg/dL (70-110)
[2020-02-24] MEDS: Acetaminophen 325 MG Tablet 650 MG PO (12:15)
[2020-02-24 13:59] LABS: Bacteria 0 SEEN /hpf (None Seen); Mucous, Urine 0 SEEN /hpf (<or=2+); Red Blood Cells-Urine 0 SEEN /hpf (0-5); Squamous Epithelial Cells - UA 0 SEEN /hpf (0-5); White Blood Cells 0 SEEN /hpf (0-5)
[2020-02-24 14:02] LABS: Color, Urine Yellow (Yellow); Glucose, Dipstick 1000 mg/dl (Normal); Ketone-Dipstick Negative (Negative); Leukocyte Esterase-Dipstick Negative /ul (Negative); Nitrite-Dipstick Negative (Negative); Occult Blood-Urine 50 /ul (Negative); Protein-Dipstick 100 mg/dl (Negative); Specific Gravity, Urine 1.015 (1.002-1.030); Urine Bilirubin Dipstick Negative (Negative); Urine Clarity Clear (Clear); Urine Urobilinogen Normal (Normal)
[2020-02-24] MEDS: Insulin Human 75/25 Kwickpen 15 UNIT SC (17:05)
[2020-02-24] MEDS: Tamsulosin HCl 0.4 MG Capsule PO (17:05)
[2020-02-24 17:15] LABS: Bedside Glucose 245 mg/dL (70-110)
[2020-02-24 19:05] VITALS: PULSE 64; O2SAT 97
[2020-02-24] MEDS: Acetaminophen 500 MG Tablet 1000 MG PO (19:35)
[2020-02-24] MEDS: Atorvastatin Calcium 40 MG Tablet PO (19:36)
[2020-02-24 19:51] VITALS: BP 134/60; PULSE 60; RESP 16; TEMP 36.9; O2SAT 98
[2020-02-24] MEDS: Senna/Docusate Sodium 1 Tablet PO ×2 (21:48)
[2020-02-25 06:30] VITALS: BP 114/67; BP 155/82; BP 159/79; PULSE 78; PULSE 83; PULSE 85
[2020-02-25] MEDS: Acetaminophen 500 MG Tablet 1000 MG PO ×3 (06:45→19:20)
[2020-02-25 07:05] LABS: Hematocrit 33.2 % (40-54); Hemoglobin 10.6 g/dL (13.0-16.5); Mean Corp Hgb Conc 31.9 g/dL (32-36); Mean Corpuscular Hgb 29.3 pg (27.0-32.0); Mean Corpuscular Volume 91.7 fL (80-94); Mean Platelet Vol. 9.4 fl (6.2-12.0); Platelet Count 174 K/mm3 (150-450); RBC Distribution Width CV 16.6 % (11.6-14.6); Red Blood Count 3.62 M/mm3 (4.6-6.2); White Blood Count 7.3 K/mm3 (4.4-11.0)
[2020-02-25 07:06] LABS: Bedside Glucose 238 mg/dL (70-110)
[2020-02-25] MEDS: Carvedilol 12.5 MG Tablet PO ×2 (07:25→19:20)
[2020-02-25] MEDS: Na Biphos/Potassium Phosphate PACKET 1 PACKET PO ×2 (07:25→19:17)
[2020-02-25] MEDS: levETIRAcetam 1,000 MG Tablet 1000 MG PO ×2 (07:26→19:20)
[2020-02-25] MEDS: Insulin Human 75/25 Kwickpen 26 UNIT SC (07:29)
[2020-02-25] MEDS: Insulin Lispro 100 UNIT/ML INSULN.PEN SC ×3 (07:29→16:45)
[2020-02-25] MEDS: Losartan Potassium 100 MG Tablet PO (07:32)
[2020-02-25 07:43] LABS: Anion Gap 5 (5-15); BUN 25 mg/dL (7-18); Calcium,Total 8.8 mg/dL (8.5-10.1); Chloride 104 mmol/L (98-107); Creatinine, Serum 1.19 mg/dL (0.70-1.30); EST Glomerular Filtration Rate 64 mL/min (>60); Est Glom Filt Rate - Afr Amer 77 mL/min (>60); Estimated Creatinine Clearance 61.55 ml/min; Glucose 228 mg/dL (74-106); Potassium 4.5 mmol/L (3.5-5.1); Sodium Level 134 mmol/L (136-145)
--- NOTE | 2020-02-25 08:45 | NURSING ---
Refused Stool softener this AM.
[2020-02-25 08:59] VITALS: PULSE 77; RESP 16; TEMP 36.6; O2SAT 96
[2020-02-25 12:00] VITALS: BP 104/58; BP 113/50; BP 93/56
[2020-02-25 12:00] LABS: Bedside Glucose 170 mg/dL (70-110)
--- NOTE | 2020-02-25 12:00 | NURSING ---
Large incontinence of stool. Patient was a max assist x 2 for toileting purposes. Shower provided with total assist by staff.
[2020-02-25] MEDS: Tamsulosin HCl 0.4 MG Capsule PO (16:45)
[2020-02-25] MEDS: Insulin Human 75/25 Kwickpen 15 UNIT SC (16:46)
[2020-02-25 16:50] LABS: Bedside Glucose 201 mg/dL (70-110)
[2020-02-25] MEDS: Atorvastatin Calcium 40 MG Tablet PO (19:20)
[2020-02-25] MEDS: QUEtiapine 25 MG Tablet PO (19:20)
[2020-02-25 19:26] VITALS: BP 130/72; PULSE 60; RESP 17; TEMP 36.5; O2SAT 94
[2020-02-25 22:00] VITALS: RESP 16
[2020-02-26 06:36] LABS: Bedside Glucose 193 mg/dL (70-110)
[2020-02-26] MEDS: levETIRAcetam 1,000 MG Tablet 1000 MG PO ×2 (07:44→19:37)
[2020-02-26] MEDS: Carvedilol 12.5 MG Tablet PO ×2 (07:44→19:37)
[2020-02-26] MEDS: Acetaminophen 500 MG Tablet 1000 MG PO ×3 (07:45→19:36)
[2020-02-26] MEDS: Na Biphos/Potassium Phosphate PACKET 1 PACKET PO ×2 (07:45→19:37)
[2020-02-26] MEDS: Losartan Potassium 25 MG Tablet PO (07:46)
[2020-02-26] MEDS: Insulin Human 75/25 Kwickpen 26 UNIT SC (07:47)
[2020-02-26] MEDS: Insulin Lispro 100 UNIT/ML INSULN.PEN SC ×3 (07:48→16:38)
[2020-02-26 09:45] VITALS: BP 112/62; BP 130/60; BP 138/78; PULSE 73; PULSE 78; PULSE 81; RESP 17; TEMP 36.4; O2SAT 93
[2020-02-26 11:55] LABS: Bedside Glucose 190 mg/dL (70-110)
--- NOTE | 2020-02-26 14:00 | NURSING ---
Patient is a mod assist x 1 to get to a standing position and SBA to ambulate short distance but patient tires easily and his legs were giving out during transfer coming out of the bathroom and x 2 assist used, stand pivot only to chair. Patient discouraged with his progress and told this nurse and PRICE CLERK that he is ready to give up. 1:1 and increased encouragement provided. Will monitor.
[2020-02-26] MEDS: Tamsulosin HCl 0.4 MG Capsule PO (16:38)
[2020-02-26] MEDS: Insulin Human 75/25 Kwickpen 15 UNIT SC (16:39)
[2020-02-26 16:50] LABS: Bedside Glucose 187 mg/dL (70-110)
--- NOTE | 2020-02-26 17:42 | NURSING ---
refused to ambulate with nursing in the halls x several attempts.
[2020-02-26 18:51] VITALS: BP 103/62; PULSE 64; RESP 18; TEMP 36.4; O2SAT 97
[2020-02-26] MEDS: Atorvastatin Calcium 40 MG Tablet PO (19:37)
[2020-02-26] MEDS: QUEtiapine 25 MG Tablet PO (19:37)
--- NOTE | 2020-02-26 19:45 | NURSING ---
Patient was flat with staff this hs. Staff goes in room in tandem to cluster care. 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 After a pause, pt rattled off birthdate and name. Pt c/o being cold and staff offered to adjust room temperature. Another blanket was provided and pt rejected temperature adjustment suggestion. Staff attempts to oblige pt per personality and give every consideration.
[2020-02-26 20:30] VITALS: RESP 18; O2SAT 98
[2020-02-27] MEDS: Losartan Potassium 25 MG Tablet PO (08:14)
[2020-02-27] MEDS: Na Biphos/Potassium Phosphate PACKET 1 PACKET PO ×2 (08:14→19:37)
[2020-02-27] MEDS: Acetaminophen 500 MG Tablet 1000 MG PO ×3 (08:14→19:37)
[2020-02-27] MEDS: levETIRAcetam 1,000 MG Tablet 1000 MG PO ×2 (08:14→19:38)
[2020-02-27] MEDS: Carvedilol 12.5 MG Tablet PO ×2 (08:14→19:37)
[2020-02-27] MEDS: Insulin Lispro 100 UNIT/ML INSULN.PEN SC ×3 (08:15→17:12)
[2020-02-27] MEDS: Insulin Human 75/25 Kwickpen 26 UNIT SC (08:15)
[2020-02-27 08:31] LABS: Bedside Glucose 214 mg/dL (70-110)
--- NOTE | 2020-02-27 08:49 | PN_ITS ---
Progress Note Juan was seen on TEAM rounds today. His was present. Afebrile since admission VSS -he is still tilt positive but asymptomatic Maintaining appropriate oxygen saturation on RA Oral intake is good for fluid. He is eating about 50% of his meals. Discussed with nursing - no problems that need addressed Reviewed the PT/OT/ST notes Medication list reviewed. Blood sugar record was reviewed. Blood sugars are coming under better control but still having sugars over 200, none over 300 any longer. Platelet count is now within normal limits. Hemoglobin is 10.6, up from 9.9 on 02/23/2020. Creatinine is stable at 1.19 with a BUN of 25. Sodium is mildly decreased at 134. Urine culture had no growth. Juan is c/o pain in his left leg and it is swollen to the groin and has pitting edema. He is very concerned about this and I once again explained that he can no take anticoagulants at this time due to craniotomies for BL SDH. He has a f ilter that will prevent PE's and the clots in the left left leg will be broken down by the body and we will restart oral anticoagulant when neurosurgery approves. Alert, oriented x3 Mucous membranes are moist Lungs-good air exchange and clear to auscultation throughout. Not tachypneic. No conversational dyspnea. Heart-regular rate and rhythm, no murmur, no gallop, no rub Abdomen-soft, nontender, normal bowel sounds present No edema of the right lower extremity but edema of the left lower extremity to the groin with pitting to the groin. It is painful. No skin breakdown, no rashes Craniotomy incisions are intact with no discharge, no lisandra-incisional erythema mood - depressed and easily agitated. Irritable frequently. does not make eye contact with persons speaking to him on rounds. He gets angry and is trying to control the situation. He is frustrated that he can not go home yet. Did poorly with the last TUG. Poor memory. Can not remember what lead to the admission to [facility] and does not believe it resulted from hitting his head. Tells me that he has hit his head a lot of times in his life and never had a problem. I once again explained that he is now on an anticoagulant and his INR was a little high at 3.6. is concerned he is on less medications than he was on at home........I explained that he is now on Insulin so the oral hypoglycemics were discontinued. I also explained about hypotension and the discontinuation of diuretics. He has in the past had congestive heart failure related to a nonischemic cardiomyopathy however he is doing well with increased fluid intake and no diuretics. The lungs are clear and he has no symptoms of congestive heart failure. She can not understand this and keeps telling me that he has heart disease because he has a PM.....I explained that a PM is due to dysfunction of the electrical system and not due to cardiomyopathy......2 different things. She is frustrated and keeps saying she does not understand despite having it explained a few times on different days. Impressions 1. Debility secondary to bilateral subdural hematomas requiring bilateral craniotomies for evacuation of hematomas and relief of brain compression. 2. Orthostatic hypotension. He is well hydrated now and still has mild orthostasis although he is basically asymptomatic. Will discontinue Cozaar. Continue Coreg 12.5 mg twice daily but may have to decrease to 6.25 twice daily if he continues to be orthostatic. 3. Urine retention secondary to obstructive uropathy related to prostatic enlargement-patient's does not understand why if he can urinate he needs a catheter. I explained that even after he urinates he has 802,000 cc of urine left in the bladder. She cannot understand this. She does recall that she was told he has urine retention at [facility]. Flomax has been increased to 0.8 mg nightly. There is concern for worsening of orthostatic hypotension. Will repeat orthostatics in the a.m. He may need to go home with a catheter due to intolerance of medication and follow-up with urology. 4. Diabetes mellitus type 2-coming under better control. Will adjust the 75/25 insulin and when all blood sugars are less than 200 will discontinue the sliding scale and continue to monitor frequent blood sugars. 5. History of nonischemic cardiomyopathy. I suspect this may have been viral as his EF has improved. He is not on diuretics and is drinking plenty of fluids and has no symptoms or physical findings of congestive heart failure. 6. Mild hyponatremia 7. History of vitamin D deficiency-not on a vitamin D supplement 8. Depression-this is interfering significantly with his ability to progress in therapy. Check a TSH and T4 Check a vitamin D level Patient is now agreeable to a trial of sertraline which may help with orthostatic hypotension as well as depression. 50 mg daily has been ordered. Oxycodone 5 mg every 4 hours as needed has been ordered for pain despite every 8 hour acetaminophen. Patient was assured that this is a low dose. He continually reports that he does not know what he is expected to do. We discussed that he needs to do 3 hours of therapy daily while in acute rehab and if he is unable to do this and unable to return home he needs to be downgraded to a detention facility. Time spent with Juan and his is 60 minutes.........I also spent 60 minutes explaining things to them with nursing and the SW on Thursday. I will ask if they have any children that I can contact. Inpatient E&M: [id number] [facility] L3
--- NOTE | 2020-02-27 09:56 | CASEMGMT ---
Social Work IDT met with patient and for Team meeting. Discussed patient's progress in therapy. Pt varies with transfers at min to mod, min to sit to stand, ambulating varies from 25 ft to 125 ft ft., declined on the TUG test since eval. Pt struggling to participate with therapy. Educated to required participation. ST is working with pt on poor insight to deficits, ST memory and strategies. Nursing is encouraging fluids, monitoring orthostatic BP, adjusted meds to sleep better, 50% food intake, improving on blood sugars. Pt only wanting Tylenol but continues to complain of pain. Pt has DVT in left left. Physician reeducated to depression and antidepressant to assist with mood and irritability. Pt agreed to start antidepressant. Pt and both met with SW, nurse and physician 02/23 where physician explained at length pt medical hx, cause of injuries an plans moving forward. However, pt and during Team still frustrated with not knowing what is going on, what caused his injuries and what is expected of him during RU stay. Physician reeducated and pt answered all questions. SW explained Medicare with approve an ELOS and SW to assist with DC plans. Pt wants to DC home but educated to barriers going home at this time, that cannot assist at current level of care. Pt expressed understanding. Will Reteam next week. SW to continue to follow. Lilli Stokes, DATABASE MANAGEMENT SPECIALIST ENERGY ADVISOR
[2020-02-27 10:00] VITALS: BP 104/58; BP 121/60; BP 122/57; PULSE 76; PULSE 80; PULSE 87; RESP 16; TEMP 36.6; O2SAT 94
[2020-02-27 10:47] LABS: Vitamin D,25 Hydroxy 12.3 ng/mL
[2020-02-27 11:12] LABS: Anion Gap 3 (5-15); BUN 21 mg/dL (7-18); BUN/Creat Ratio 15.4 RATIO (10-20); Calcium,Total 8.6 mg/dL (8.5-10.1); Chloride 106 mmol/L (98-107); Creatinine, Serum 1.36 mg/dL (0.70-1.30); EST Glomerular Filtration Rate 54 mL/min (>60); Est Glom Filt Rate - Afr Amer 66 mL/min (>60); Estimated Creatinine Clearance 53.85 ml/min; Glucose 223 mg/dL (74-106); Potassium 4.8 mmol/L (3.5-5.1); Sodium Level 137 mmol/L (136-145); T4 Free Direct 1.17 ng/dL (0.76-1.46); Thyroid Stim Hormone (TSH) 2.08 uIU/mL (0.358-3.74)
[2020-02-27 11:56] LABS: Bedside Glucose 184 mg/dL (70-110)
[2020-02-27] MEDS: Sertraline 50 MG Tablet PO (12:18)
[2020-02-27 13:41] LABS: Bedside Glucose 159 mg/dL (70-110)
--- NOTE | 2020-02-27 13:41 | NURSING ---
pt demanding to get back into bed. after refusing therapy when went in for afternoon session. stated, you people dont lay out any expectations you have for me so im done just had team on this previously this am and pt wax and wans on participating. baljinder nettles and dr. arizmendi both aware.pt then c/o being nauseated now wanted to check bs as directed and when early childhood specialist in to do pt stated, thats not why im nauseated! dr. arizmendi to go in and discuss
[2020-02-27] MEDS: Ondansetron ODT 4 MG Tablet PO (14:04)
[2020-02-27 14:36] LABS: Lactic Acid 1.5 mmol/L (0.4-1.9)
[2020-02-27] MEDS: 0.9% Normal Saline 1,000 ML 100 ML IV (14:36)
[2020-02-27 14:38] LABS: Mucous, Urine 0 SEEN /hpf (<or=2+)
[2020-02-27 14:43] LABS: Color, Urine Yellow (Yellow); Glucose, Dipstick 100 mg/dl (Normal); Ketone-Dipstick Negative (Negative); Leukocyte Esterase-Dipstick 500 /ul (Negative); Nitrite-Dipstick Positive (Negative); Occult Blood-Urine 150 /ul (Negative); Protein-Dipstick 100 mg/dl (Negative); Specific Gravity, Urine 1.015 (1.002-1.030); Urine Bilirubin Dipstick Negative (Negative); Urine Clarity Sl. Cloudy (Clear); Urine Urobilinogen Normal (Normal)
[2020-02-27 14:49] LABS: Bacteria 1+ /hpf (None Seen); Red Blood Cells-Urine 10-25 SEEN /hpf (0-5); Squamous Epithelial Cells - UA 0-5 SEEN /hpf (0-5); White Blood Cells 50-100 SEEN /hpf (0-5)
[2020-02-27 15:01] LABS: Lipase 167 U/L (73-393)
[2020-02-27 15:22] LABS: Absolute Lymphocyte Count 1.09 X10^3/uL (0.83-4.51); Basophil# 0.07 X10^3/uL; Basophil% 0.8 % (0-1); Eosinophil# 0.22 X10^3/uL; Eosinophils% 2.4 % (0-5); Hematocrit 29.1 % (40-54); Hemoglobin 9.5 g/dL (13.0-16.5); Lymphocyte # 1.09 X10^3/ul (4.0); Lymphocyte % 12.1 % (19-41); Mean Corp Hgb Conc 32.6 g/dL (32-36); Mean Corpuscular Hgb 29.9 pg (27.0-32.0); Mean Corpuscular Volume 91.5 fL (80-94); Mean Platelet Vol. 9.6 fl (6.2-12.0); Monocyte% 6.7 % (0-10); NRBC Flagged by Analyzer 0 % (0-5); Neutrophil # 6.96 X10^3/uL (2.7-7.7); Neutrophil % 77.4 % (47-70); Platelet Count 199 K/mm3 (150-450); RBC Distribution Width CV 16.7 % (11.6-14.6); RBC Distribution Width SD 55.5 fl (35.1-43.9); Red Blood Count 3.18 M/mm3 (4.6-6.2)
[2020-02-27] MEDS: levoFLOXacin IV 500 MG/100 ML BAG 100 MG IV (16:19)
[2020-02-27] MEDS: Tamsulosin HCl 0.4 MG Capsule 0.8 MG PO (17:08)
[2020-02-27] MEDS: oxyCODONE 5 MG Tablet PO (17:11)
[2020-02-27 17:25] LABS: Bedside Glucose 221 mg/dL (70-110)
--- NOTE | 2020-02-27 17:28 | PCM.RX.CS ---
Consult Pharmacy has been consulted to manage selected antiobiotic: Vancomycin Type of Consult: New start Suspected Infection: Other - UNKNOWN Labs: Sodium 137 mmol/L (136-145) 02/27/20 10:20 Potassium 4.8 mmol/L (3.5-5.1) 02/27/20 10:20 Chloride 106 mmol/L (98-107) 02/27/20 10:20 Carbon Dioxide 28.0 mmol/L (21.0-32.0) 02/27/20 10:20 Anion Gap 3 (5-15) L 02/27/20 10:20 BUN 21 mg/dL (7-18) H 02/27/20 10:20 Creatinine 1.36 mg/dL (0.70-1.30) H 02/27/20 10:20 Est GFR (MDRD) Af Amer 66 mL/min (>60) 02/27/20 10:20 Est GFR (MDRD) Non-Af 54 mL/min (>60) L 02/27/20 10:20 BUN/Creatinine Ratio 15.4 RATIO (10-20) 02/27/20 10:20 Glucose 223 mg/dL (74-106) H 02/27/20 10:20 Microbiology: Microbiology 02/24/20 12:15 Urine, Catheterized Urine Culture - Preliminary Alpha hemolytic organism Goal Trough: 15-20 mcg/mL Pharmacy Plan for Drug Dosing: NEW START IV VANCOMYCIN Consulting Physician: SEMENTI Indication: UNKNOWN, POSSIBLY UTI OR BLOODSTREAM Goal Trough: 15-20 MG/DL SrCr: 1.36 CrCl: 63.6 ML/MIN USING ADJUSTED BODY WEIGHT OF 94.3KG Comments: ED DOSE OF 1750MG X1 GIVEN AT 1713 ON 02/26 Vancomycin Dose: 1500MG Q12H STARTING 02/27 @ 0500 Pharmacy Service will continue to monitor and adjust dosing as required. Labs to be done on [date and time ordered]: 02/29/20 @ 5506
[2020-02-27 19:19] VITALS: BP 151/69; PULSE 73; RESP 16; TEMP 36.9; O2SAT 94
[2020-02-27] MEDS: Atorvastatin Calcium 40 MG Tablet PO (19:37)
[2020-02-27 19:48] VITALS: PULSE 76; RESP 16
[2020-02-27 20:21] LABS: Bedside Glucose 177 mg/dL (70-110)
--- NOTE | 2020-02-27 20:32 | NURSING ---
Dr Viraj Boss paged and returned call immediately. [facility] [place] [facility] Rogers gave n/o for ACX[facility] blood sugar checks reinstated.
[2020-02-28] MEDS: 0.9% Normal Saline 1,000 ML 100 ML IV (03:07)
[2020-02-28] MEDS: Acetaminophen 500 MG Tablet 1000 MG PO ×3 (06:55→20:33)
[2020-02-28 07:06] LABS: Bedside Glucose 186 mg/dL (70-110)
[2020-02-28] MEDS: Carvedilol 12.5 MG Tablet PO ×2 (07:46→20:33)
[2020-02-28] MEDS: Sertraline 50 MG Tablet PO (07:46)
[2020-02-28] MEDS: Na Biphos/Potassium Phosphate PACKET 1 PACKET PO ×2 (07:46→20:32)
[2020-02-28] MEDS: levETIRAcetam 1,000 MG Tablet 1000 MG PO ×2 (07:46→20:33)
[2020-02-28] MEDS: Insulin Lispro 100 UNIT/ML INSULN.PEN SC ×3 (07:47→17:32)
[2020-02-28 07:48] VITALS: BP 148/65; PULSE 90; RESP 18; TEMP 36.5; O2SAT 90
[2020-02-28] MEDS: proCHLORPERazine 10 MG/2 ML Vial 5 MG IV (07:52)
[2020-02-28] MEDS: oxyCODONE 5 MG Tablet PO (07:53)
--- NOTE | 2020-02-28 10:22 | NURSING ---
pt back to room and in chair. did agree to try therapy and went to therapy room but unable to do much today. c/o feeling lightheaded every time stood up per therapist.
[2020-02-28] MEDS: levoFLOXacin IV 250 MG/50 ML BAG 50 MG IV (10:48)
--- NOTE | 2020-02-28 10:51 | CT_ITS ---
STUDY: CT BRAIN WITH AND WITHOUT CONTRAST REASON FOR EXAM: Male, 74 years old. INTRACRANIAL ABSCESS? BILATERAL HEMATOMAS WITH EVACUATION 02/13/20. 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 The examination was performed with intravenous administration of IV 50mL Isovue-370. Individualized dose optimization techniques were used for this CT. COMPARISON: None. FINDINGS: Normal soft tissue structures. Status post bilateral lázaro holes. There is disproportionate enlargement of the lateral and third ventricles, as compared to the extra-axial spaces. The findings suggest normal pressure hydrocephalus (NPH). A a right-sided ventricular peritoneal shunt tube is seen with the tip in the right frontal horn. The patient is status post evacuation of the bilateral subdural hematomas with air-fluid levels in both subdural collections. There is evidence of a acute bleed on chronic subdurals. There is no evidence of intracranial abscess. Normal basal ganglia and thalami. Normal brainstem. Normal cerebellum. There is no intracranial hemorrhage. There are no findings of an acute ischemic infarction. Normal visualized paranasal sinuses. CT/Brain/Head W/WO Contrast IMPRESSION: Status post drainage of the bilateral subdural hematomas with residual small bilateral subdural hematomas with the acute bleed on chronic changes. No evidence of intracranial abscess. Findings suggestive of normal pressure hydrocephalus. Electronically Signed: Stevo Tiwari, at 13:03 EDT , Service support ,
--- NOTE | 2020-02-28 11:16 | PN_ITS ---
Progress Note Afebrile-since admission VSS -has asymptomatic orthostatic hypotension on 02/27/2020. IV fluids were ordered Maintaining appropriate oxygen saturation on RA Oral intake is poor. Discussed with nursing - no problems that need addressed Reviewed the PT/OT/ST notes Medication list reviewed. All labs from 02/27/2020 was reviewed. The white blood cell count is normal at 9.0 but he has a left shift with 77.4% neutrophils. INR was increased to 1.36 with a BUN of 21. Lactic acid was 1.5 and the lipase was within normal limits. Vitamin D is low and he was started on a vitamin D supplement. TSH and T4 are within normal limits. UA on 02/27/2020 showed 50-100 WBCs per high-power field and 10-25 RBCs. It was nitrite positive and had 1+ urine bacteria. The alphahemolytic organism growing on urine culture from 02/24/2020 was Atopobium Vaginae which is an anaerobe. The UA that grew this organism had no WBC's and no bacteria. He denies abd pain, pelvic pain, diarrhea, vomiting, cough, chest pain, shortness of breath, sore throat. He continues to complain of headache and left lower extremity pain. He remains nauseated and the oxycodone increases the nausea. No changes in vision, no ear pain, no neck stiffness. Blood cultures have no growth yet. Alert and oriented x3, sitting in the recliner at the bedside, looks pale and weak........ he has declined over the past 2 days. Mucous membranes are very dry There is no exudate in the posterior pharynx and no erythema. The floor of the mouth is soft. There are no lesions of the buccal mucosa. He denies dental pain. Has multiple missing teeth and broken off teeth caries. No submandibular adenopathy or pain with palpation and no cervical nodes appreciated. No nuchal rigidity Pupils are equal round and reactive to light. Extraocular muscles are intact. Lungs-CTA through out with good air exchange. No cough with deep breaths. Heart-regular rate and rhythm with an occasional ectopic beat. No murmur, no gallop, no rub. Abdomen-soft, nontender, no guarding with deep palpation, bowel sounds present, no masses, no suprapubic pain with palpation The left lower extremity is markedly edematous up to the thigh and painful. He more than likely has DVT but, with the recent craniotomy he can not be anticoagulated at this time. Will DC the SCD's on the LLE as they increase the pain. No edema of the RLE and there is no pain in the RLE. No rashes and no skin breakdown The incisions are well co-apted and there is no dehiscence. There is no DC and no erythema. No redness at the site of the TESTING AND REGULATING TECHNICIAN shunt in the R frontal area. Impressions 1. Debility due to recent bilateral subdural hematomas resulting in bilateral craniotomies for evacuation of clots and brain decompression. 2. History of normal pressure hydrocephalus with a TESTING AND REGULATING TECHNICIAN shunt present in the right frontal area 3. Atopobium Vaginae, greater than 100,000 colonies, growing in a urine culture. At the time the culture was taken there were 0 WBCs in the urine, no bacteria and it was negative for nitrite. I am concerned about a possible brain abscess given that this is an anaerobe and he is complaining of a headache. Now the urine has 50-100 WBCs and I suspect he has urinary tract infection at this time. 4. 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 Cannot be anticoagulated secondary to recent craniotomy. He does have an IVC filter in place. 5. History of PM/AICD 6. Prostatic hypertrophy with urinary tract obstruction and urine retention despite Flomax 0.4 mg daily. Khan has been in place. Flomax was increased to 0.8 mg daily but he has orthostatic hypotension and we may have to discontinue Flomax. 7. Vitamin D deficiency-vitamin D supplement was started. 8. Nausea with no vomiting and no abdominal pain 9. Dehydration 10. Recent diarrhea-has recovered 11. History of nonischemic cardiomyopathy with an ejection fraction of 45% in 2015 and no significant coronary artery disease on catheterization. Lungs are clear to auscultation. 12. Very poor dentition with multiple missing teeth and broken off teeth with caries. Consult Dr. Canales from infectious disease to participate in management Discontinue Levaquin and start Unasyn. Await Dr. Canales's consult. May be able to discontinue vancomycin and start Flagyl or continue Unasyn as a solitary agent. CBC with differential, CMP, mag, phos, ESR, CRP now Continue IV fluids Continue clear liquids Discontinue oxycodone because it is increasing the nausea. Fentanyl 25 mcg IV every 4 hours as needed pain CT scan of the brain with and without contrast. Patient lists contrast as an allergy and cannot remember if it is gadolinium or IV contrast used for CT scan. He tells me he has had contrasted studies since the initial reaction he had a contrast. He receives pretreatment with medication prior to a contrasted study and he has had no reactions. Will administer 40 mg of IV Solu-Medrol and 50 mg of IV Benadryl prior to CT scan. This pt is very complicated and may nee to be transferred back to [facility].......await the results of the CTB and the lab work. Dr. Canales is going to review the chart today and will discuss with him after he has had a chance to do this. > 45 minutes was spent coordinating care for this pt and examining him. STROKE Vital Signs/Narrative: Vital Signs Temp Pulse Resp BP Pulse Ox 02/28/20 07:48 97.7 F L 90 18 148/65 H 90 Inpatient E&M: 55550 Subs Hosp L3
[2020-02-28] MEDS: DiphenhydrAMINE 50 MG/ML Syringe IV (11:20)
[2020-02-28] MEDS: Contrast Allergy Safety Check IV (11:29)
[2020-02-28 11:31] LABS: Bedside Glucose 193 mg/dL (70-110)
[2020-02-28] MEDS: 0.9% Normal Saline 1,000 ML 75 ML IV ×2 (11:50→20:27)
[2020-02-28 12:24] LABS: Erythrocyte Sedimentation Rate 52 mm/hr (0-20)
[2020-02-28 12:32] LABS: Absolute Lymphocyte Count 0.98 X10^3/uL (0.83-4.51); Absolute Neutrophil Count 10.6 X10^3/uL (2.0-7.7); Basophil# 0.06 X10^3/uL; Basophil% 0.5 % (0-1); Eosinophil# 0.12 X10^3/uL; Hematocrit 28.8 % (40-54); Hemoglobin 9.2 g/dL (13.0-16.5); Lymphocyte # 0.98 X10^3/ul (4.0); Lymphocyte % 7.8 % (19-41); Mean Corp Hgb Conc 31.9 g/dL (32-36); Mean Corpuscular Hgb 29.4 pg (27.0-32.0); Mean Platelet Vol. 9.1 fl (6.2-12.0); Monocyte# 0.75 X10^3/uL; NRBC Flagged by Analyzer 0 % (0-5); Neutrophil # 10.56 X10^3/uL (2.7-7.7); Neutrophil % 84.1 % (47-70); Platelet Count 197 K/mm3 (150-450); RBC Distribution Width CV 16.3 % (11.6-14.6); RBC Distribution Width SD 55.3 fl (35.1-43.9); Red Blood Count 3.13 M/mm3 (4.6-6.2); White Blood Count 12.5 K/mm3 (4.4-11.0)
[2020-02-28] MEDS: fentaNYL 100 MCG/2 ML Ampul 25 MCG IV (14:11)
[2020-02-28 14:31] LABS: ALB/GLOB Ratio 0.5 RATIO (0.9-2.4); AST(SGOT) 13 U/L (15-37); Alanine Aminotransfer ALT/SGPT 11 U/L (16-61); Albumin, Serum 2.4 g/dL (3.2-5.0); Alkaline Phosphatase 109 U/L (45-117); Anion Gap 5 (5-15); BUN 18 mg/dL (7-18); BUN/Creat Ratio 14.2 RATIO (10-20); Calcium,Total 8.3 mg/dL (8.5-10.1); Chloride 105 mmol/L (98-107); Creatinine, Serum 1.27 mg/dL (0.70-1.30); EST Glomerular Filtration Rate 59 mL/min (>60); Est Glom Filt Rate - Afr Amer 71 mL/min (>60); Estimated Creatinine Clearance 57.67 ml/min; Globulin 4.8 g/dL (2.2-4.2); Glucose 202 mg/dL (74-106); Magnesium 1.8 mg/dL (1.6-2.6); Phosphorus 2.8 mg/dL (2.5-4.9); Potassium 4.9 mmol/L (3.5-5.1); Protein, Total 7.2 g/dL (6.4-8.2); Sodium Level 135 mmol/L (136-145)
[2020-02-28 16:21] LABS: Bedside Glucose 236 mg/dL (70-110)
[2020-02-28] MEDS: Tamsulosin HCl 0.4 MG Capsule 0.8 MG PO (17:30)
--- NOTE | 2020-02-28 17:45 | NURSING ---
here and updated on pt's care and condition. pt in bed finishing clear denys red.
[2020-02-28 20:27] VITALS: BP 128/64; PULSE 68; RESP 16; TEMP 37.1; O2SAT 95
[2020-02-28] MEDS: Atorvastatin Calcium 40 MG Tablet PO (20:33)
[2020-02-28 20:46] LABS: Bedside Glucose 309 mg/dL (70-110)
[2020-02-29] MEDS: Acetaminophen 500 MG Tablet 1000 MG PO (06:51)
[2020-02-29 07:15] LABS: Bedside Glucose 233 mg/dL (70-110)
--- NOTE | 2020-02-29 07:27 | NURSING ---
This morning pt was complaining about the care he has received during his stay. Pt states in 10 years he has been in a lot of hospitals and this hospital is by far the worst. States he has a dr's appointment tomorrow and he will not be coming back. States he would rather on the side of the road than come back to this hospital. States nothing has been done for him here no-one cares. Pt states therapy hasn't don't a thing for him and hasn't set any goals. Pt used foul language throughout the conversation. This RN stated I was sorry and asked if there was anything I could do for him. pt denies needs. Attempted to give emotional support, but it made pt more agitated. At the end of the conversations this RN said have a good day Juan. Pt responded thanks you too.
[2020-02-29 07:30] VITALS: BP 147/65; PULSE 74; RESP 18; TEMP 36.7; O2SAT 96
[2020-02-29] MEDS: Insulin Lispro 100 UNIT/ML INSULN.PEN SC ×3 (08:09→17:07)
[2020-02-29] MEDS: levETIRAcetam 1,000 MG Tablet 1000 MG PO ×2 (08:11→20:50)
[2020-02-29] MEDS: Sertraline 50 MG Tablet PO (08:11)
[2020-02-29] MEDS: Carvedilol 12.5 MG Tablet PO ×2 (08:11→20:50)
--- NOTE | 2020-02-29 09:17 | PN_ITS ---
Progress Note Day #3 antibiotics -Currently on Unasyn Afebrile since admission Vital signs are stable-no hypotension, no tachycardia He is maintaining appropriate oxygen saturation on room air. Fluid balance on 02/28/2020 was +[id number] CT scan was negative for abscess, stroke. There are small subdural hematomas, acute on chronic. No intracranial bleeding currently. He had no reaction to the IV contrast when premedicated. Lab yesterday showed an increased white blood cell count of 12.5 with 84% neutrophils. ESR was elevated at 52 and the CRP was 151. LFTs were unremarkable. Creatinine had decreased from 1.36 on Thursday to 1.27 with IV fluids yesterday. Phosphorus and magnesium were within normal limits. Blood sugars have increased since he was placed on clear liquids and sliding scale insulin. Blood cultures have no growth at 48 hours. Urine culture sent 02/27/2020 is still pending. He denies nausea today. He is continuing to complain of a headache. The pain in the left leg is better. He only had 1 dose of fentanyl yesterday. Denies neck stiffness, flank pain, pelvic pain. No diarrhea. He looks better today. He has color in his face and does not appear so weak. He is complaining about the clear liquids. Not as irritable or agitated today, just complaining. Slept well last night. MM are moist. The urine in the harris tubing is pale yellow today and more clear. Lungs - CTA HRRR, no gallop abd - soft and NT there is less edema in the left leg today.....he had it elevated for long periods of time yesterday. No edema in the RLE no rashes, no skin breakdown. No erythema or DC from the incisions No focal neurologic deficits No0 nuchal rigidity. Dr. Canales has not seen him yet today. Impressions 1. Recent bilateral craniotomies to evacuate subdural hematomas and relieve brain compression 2. Normal pressure hydrocephalus with a [employer] shunt 3. Urine culture with greater than 100,000 colonies of Atopobium Vaginae from 02/24/2020 and at the time he had no white blood cells in his urine 4. New urinary tract infection-more likely than not related to Harris catheter which was inserted for obstructive uropathy with large amounts of urine retention 5. Orthostatic hypotension 6. Dehydration-much improved 7. Very poor dentition recent in a pt with a [employer] shunt, PM/AICD and recent craniotomy. Advised to seek out a dentist soon after discharge. Continue Unasyn DC IV fluids Orthostatic vital signs in the a.m. Await Dr. Canales's consult Has not been able to do any significant therapy the past 2 days secondary to acute illness. Will start therapy again today. Advance diet Resume 75/25 insulin DC scheduled Tylenol and try Vicodin for pain 1-5 and continue the Fentanyl for 6-10 Await the results of the urine culture from 02/27/2020 DC phosphorus supplement STROKE Vital Signs/Narrative: Vital Signs Temp Pulse Resp BP Pulse Ox 02/29/20 07:30 98.1 F 74 18 147/65 H 96 Inpatient E&M: 22912 Subs Hosp L2
[2020-02-29 09:52] VITALS: PULSE 74; RESP 18; O2SAT 96
[2020-02-29 11:10] LABS: Bedside Glucose 254 mg/dL (70-110)
--- NOTE | 2020-02-29 12:53 | CON.PCM_ITS ---
Problem List (1) UTI (urinary tract infection) Status: Acute Reason for Consult: uti Consulted by: Dr. Barber History of Present Illness: The patient is a 74 year old M admitted to [facility] for subdural hematomas requiring bilateral craniotomy, discharged to [facility] a week ago. Had harris placed due to retention. Initial ucx with Atopobium, repeat UA with heavy pyuria, started on unasyn, repeat ucx now with ecoli-like. No fever. Had some diarrhea past 2 days, now resolved. Denies fever, no abd or flank pain, no n/v. Overall feeling better today. Full ROS performed and neg except as noted above. Some headache. - Medical History Past Medical History (Chronic Problems): Chronic Problems BPH (benign prostatic hyperplasia) (Chronic) DM (diabetes mellitus), type 2 (Chronic) History of ventriculoperitoneal shunting (Chronic) 2010 for NPH Cardiomyopathy (Chronic) non-ischemic. 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 Ablation for SVT in October 2010. 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 Has a 10 Pack year hx. Chronic anticoagulation (Chronic) on warfarin Non-compliance (Chronic) with diet Obesity (BMI 30.0-34.9) (Chronic) History of permanent cardiac pacemaker placement (Chronic) LVH (left ventricular hypertrophy) (Chronic) Chronic renal failure, stage 3 (moderate) (Chronic) AICD (automatic cardioverter/defibrillator) present (Chronic) Poor dentition (Chronic) Allergies/Adverse Reactions: Allergies ceftriaxone Allergy (Verified 01/26/15 13:00) Hives fish oil Allergy (Verified 02/13/15 07:50) Unknown Gadolinium-MRI Contrast Medium [CONTRAST] Allergy (Verified 02/13/15 07:50) Anaphylaxis Home Medications: Ambulatory Orders Medication Instructions Recorded Aspirin [Aspirin, Baby] 81 mg PO DAILY@0800 01/26/15 Atorvastatin Calcium [Lipitor] 80 mg PO QHS 01/26/15 Carvedilol [Coreg (Beta Leigh)] 12.5 mg PO BID 01/26/15 Insulin U-500 [Humulin R U-500 20 units SC BIDAC 01/26/15 ([facility])] Losartan Potassium [Cozaar] 100 mg PO DAILY 01/26/15 Warfarin Sodium [Coumadin] 10 mg PO TUTH 01/26/15 Warfarin [Coumadin] 7.5 mg PO SUMOWEFRSA 01/26/15 Magnesium l-Lactate [Mag-Tab Sr] 84 mg PO DAILY #30 tablet.er 01/27/15 Furosemide [Lasix] 40 mg PO DAILY 02/13/15 Glucosam/Mohamud-Msm1/C/Isac/Bosw 1 each PO BID 02/13/15 [Glucosamine-Chondroitin Tablet] - Social History SMOKING STATUS:: Former smoker Vital Signs Temp Pulse Resp BP Pulse Ox 98.1 F 74 18 147/65 H 96 02/29/20 07:30 02/29/20 09:52 02/29/20 09:52 02/29/20 07:30 02/29/20 09:52 Oxygen Delivery Method Room Air Weight: 115.757 kg Body Mass Index (BMI) 33.6 Orthostatic Vital Signs Start: 02/24/20 07:26 Freq: q24h Status: Active Protocol: Activity Type Activity Date Activity User E-Sign Co-Sign Detail Recorded Client Recorded Date Recorded By Document 02/27/20 10:00 [id number] 02/27/20 10:26 02/27/20 10:00 Orthostatic Vitals Standing -Blood Pressure (90/60-120/80) 104/58 L -Extremity Use Left Arm -Pulse Rate (60-100) 87 Sitting -Blood Pressure (90/60-120/80) 122/57 H -Extremity Use Left Arm -Pulse Rate (60-100) 80 Lying -Blood Pressure (90/60-120/80) 121/60 H -Extremity Use Left Arm -Pulse Rate (60-100) 76 Microbiology Past 72 Hours 02/27/20 14:30 Urine Culture - Preliminary Urine Catheter - Harris Presumptive E. coli 02/27/20 14:30 Blood Culture - Preliminary Blood Culture (Wb) - Right Hand No growth in 48 hours. 02/27/20 14:00 Blood Culture - Preliminary Blood Culture (Wb) - Right Forearm No growth in 48 hours. 02/24/20 12:15 Urine Culture - Final Urine, Catheterized Atopobisuzette vaginae Laboratory Tests Past 24 Hrs 02/28/20 11:56 Sodium 135 L Potassium 4.9 Chloride 105 Carbon Dioxide 25.0 Anion Gap 5 BUN 18 Creatinine 1.27 Estim Creat Clear Calc 57.67 Est GFR (MDRD) Af Amer 71 Est GFR (MDRD) Non-Af 59 L BUN/Creatinine Ratio 14.2 Glucose 202 H Calcium 8.3 L Phosphorus 2.8 Magnesium 1.8 Total Bilirubin 0.80 AST 13 L ALT 11 L Alkaline Phosphatase 109 C-React Prot Ext Range 151.00 H Total Protein 7.2 Albumin 2.4 L Globulin 4.8 H Albumin/Globulin Ratio 0.5 L - Other Studies Radiology: [] reviewed Other Studies: [] Route of nutrition/ use of supplements: [] Nutritional Intake: [] IV Site: [] Harris Catheter: [] - Physical Exam General: Alert, Oriented x3, Cooperative, No apparent distress HEENT: PERRLA, EOMI, - - bilat craniotomy incisions with no inflammation Neck: Supple, No Nodes Lungs: Clear to auscultation, Normal air movement Cardiovascular: Regular rate, Regular Rhythm Abdomen: Soft, Non Tender, Non-Distended Extremities: No edema Skin: No rashes IV Site: Peripheral, without redness Musculoskeletal: No Tenderness to Palpation of Joints or Extremities - Assessment/Plan Antibiotics: [] Assessment/Plan: [] Active and Suspected Problems Subdural hematoma (Acute) BL Hx of craniotomy (Acute) BL on 02/15/[address] [facility] for BL subdural hematomas with brain compression Anemia (Acute) Dysphagia (Acute) Seizure disorder (Acute) due to BL SDH's with brain compressions Urine retention (Acute) LAE (left atrial enlargement) (Acute) mild Thrombocytopenia (Acute) Hyponatremia (Acute) uti with harris in place - voiding trial planned for tomorrow. Improving on unasyn. Await final identification of ucx. Will follow, thank you, d/w Dr. Barber
--- NOTE | 2020-02-29 16:23 | NURSING ---
Received return call from Dr. Escalante's office, they do want him to keep his appointment tomorrow. Dr. Barber made aware.
[2020-02-29 16:31] LABS: Bedside Glucose 201 mg/dL (70-110)
[2020-02-29] MEDS: Insulin Human 75/25 Kwickpen 18 UNIT SC (17:08)
[2020-02-29] MEDS: 0.9% Normal Saline 250 ML IV.SOLN. IV (17:09)
[2020-02-29] MEDS: Tamsulosin HCl 0.4 MG Capsule 0.8 MG PO (18:01)
[2020-02-29 19:35] VITALS: BP 125/66; PULSE 60; RESP 18; TEMP 36.4; O2SAT 98
[2020-02-29] MEDS: Atorvastatin Calcium 40 MG Tablet PO (20:50)
[2020-02-29 21:56] LABS: Bedside Glucose 246 mg/dL (70-110)
[2020-03-01 04:54] VITALS: BP 114/64; BP 147/73; BP 152/85; PULSE 85; PULSE 88; PULSE 89
[2020-03-01 07:06] LABS: Bedside Glucose 219 mg/dL (70-110)
[2020-03-01] MEDS: Insulin Lispro 100 UNIT/ML INSULN.PEN SC (08:04)
[2020-03-01] MEDS: Carvedilol 12.5 MG Tablet PO (08:05)
[2020-03-01] MEDS: Insulin Human 75/25 Kwickpen 32 UNIT SC (08:05)
[2020-03-01] MEDS: Sertraline 50 MG Tablet PO (08:05)
[2020-03-01] MEDS: levETIRAcetam 1,000 MG Tablet 1000 MG PO (08:05)
[2020-03-01 08:30] VITALS: BP 147/73; PULSE 83; RESP 12; TEMP 36.9; O2SAT 95
--- NOTE | 2020-03-01 09:10 | PCM.PN.ID ---
Patient Problems: Active and Suspected Problems Subdural hematoma (Acute) BL Hx of craniotomy (Acute) BL on 02/15/20 at [facility] for BL subdural hematomas with brain compression Anemia (Acute) Dysphagia (Acute) Seizure disorder (Acute) due to BL SDH's with brain compressions Urine retention (Acute) LAE (left atrial enlargement) (Acute) mild Thrombocytopenia (Acute) Hyponatremia (Acute) UTI (urinary tract infection) (Acute) - Physical Exam Vitals/I&O's: Vital Signs Temp Pulse Resp BP Pulse Ox 98.5 F 83 12 147/73 H 95 03/01/20 08:30 03/01/20 08:30 03/01/20 08:30 03/01/20 08:30 03/01/20 08:30 Oxygen Delivery Method Room Air Weight: 115.757 kg Body Mass Index (BMI) 33.6 Orthostatic Vital Signs Start: 02/24/20 07:26 Freq: q24h Status: Active Protocol: Activity Type Activity Date Activity User E-Sign Co-Sign Detail Recorded Client Recorded Date Recorded By Document 03/01/20 04:54 WCM [id number] 03/01/20 04:56 WCM 03/01/20 04:54 Orthostatic Vitals Standing -Blood Pressure (90/60-120/80) 114/64 -Extremity Use Left Arm -Pulse Rate (60-100) 89 Sitting -Blood Pressure (90/60-120/80) 152/85 H -Extremity Use Left Arm -Pulse Rate (60-100) 88 Lying -Blood Pressure (90/60-120/80) 147/73 H -Extremity Use Left Arm -Pulse Rate (60-100) 85 Intake and Output for Last 24 Hours 02/28/20 02/29/20 03/01/20 23:59 23:59 23:59 Intake Total 4946.92 / 4946.92 3151.00 / 3151.00 464 / 464 Output Total 3325 / 3325 1500 / 1500 1025 / 1025 Balance 1621.92 / 1621.92 1651.00 / 1651.00 -561 / -561 Microbiology Past 72 Hours 02/27/20 14:30 Urine Catheter - Harris Urine Culture - Final Presumptive E. coli 02/27/20 14:30 Blood Culture (Wb) - Right Hand Blood Culture - Preliminary No growth in 48 hours. 02/27/20 14:00 Blood Culture (Wb) - Right Forearm Blood Culture - Preliminary No growth in 48 hours. 02/24/20 12:15 Urine, Catheterized Urine Culture - Final Atopobium vaginae Laboratory Results 02/29/20 11:06: POC Glucose 254 H 02/29/20 16:28: POC Glucose 201 H 02/29/20 21:18: POC Glucose 246 H 03/01/20 07:00: POC Glucose 219 H Current Medications Hydrocodone Bitart/Acetaminophen ([place] 5mg-325mg) 1 tablet PO Q4H PRN PRN PRN Reason: Pain Score 1-5/10 Atorvastatin Calcium (Lipitor) 40 mg PO QHS@1999 [facility] Last Admin: 02/29/20 20:50 Dose: 40 mg Documented by: Bisacodyl (Dulcolax) 10 mg RECTAL .PRN X 1 PRN PRN Reason: Constipation Carvedilol (Coreg) 12.5 mg PO BID@799,1999 [facility] Last Admin: 03/01/20 08:05 Dose: 12.5 mg Documented by: Cholecalciferol (Vitamin D (25mcg)) 1,000 unit PO DAILY [facility] Last Admin: 03/01/20 08:05 Dose: 1,000 unit Documented by: Dextrose (D50w Syringe) 0 gm IV X1 PRN; Protocol PRN Reason: Hypoglycemia Fentanyl Citrate (Sublimaze (100mcg Ampule)) 25 mcg IV Q4H PRN PRN PRN Reason: pain 6-10 Last Admin: 02/28/20 14:11 Dose: 25 mcg Documented by: Glucagon () 1 mg IM .X1 PRN PRN Reason: Hypoglycemia Insulin Human Lispro (Humalog Kwikpen (Bkc)) 0 unit SC TIDAC [facility]; Protocol Last Admin: 03/01/20 08:04 Dose: 2 u Documented by: Insulin Lispro Protam/Lispro Human (Humalog Mix 75-25 Kwikpen (Bkc)) 18 unit SC SUPPER [facility] Last Admin: 02/29/20 17:08 Dose: 18 u Documented by: Insulin Lispro Protam/Lispro Human (Humalog Mix 75-25 Kwikpen (Bkc)) 32 unit SC BREAKFAST [facility] Last Admin: 03/01/20 08:05 Dose: 32 u Documented by: Levetiracetam (Keppra Tablet) 1,000 mg PO BID@0800,1999 [facility] Last Admin: 03/01/20 08:05 Dose: 1,000 mg Documented by: Loperamide HCl (Imodium) 2 mg PO Q4H PRN PRN PRN Reason: Diarrhea Magnesium Hydroxide (Milk Of Magnesia) 30 ml PO .PRN X 1 PRN PRN Reason: Constipation Menthol (Bengay Vanishing Scent) 1 applic TOPICAL 4X/DAY PRN PRN PRN Reason: muscle pain Last Admin: 02/25/20 11:56 Dose: 1 applic Documented by: Nitroglycerin (Nitrostat) 0.4 mg SUBLINGUAL Q5M PRN PRN Reason: CARDIAC/CHEST PAIN Prochlorperazine Edisylate (Compazine Iv) 5 mg IV Q6H PRN PRN PRN Reason: NAUSEA/VOMITING Last Admin: 02/28/20 07:52 Dose: 5 mg Documented by: Sertraline HCl (Zoloft) 50 mg PO DAILY [facility] Last Admin: 03/01/20 08:05 Dose: 50 mg Documented by: Sodium Chloride () 250 ml IV PRN PRN PRN Reason: IV flush Last Admin: 02/29/20 17:09 Dose: 250 ml Documented by: Tamsulosin HCl (Flomax) 0.8 mg PO DAILY@1730 [facility] Last Admin: 02/29/20 18:01 Dose: 0.8 mg Documented by: Medical Necessity - Tobacco Use Smoking Status: Former smoker - quit in 1971 Tobacco Use: Cigarettes Route of nutrition/ use of supplements: [] Nutritional Intake: [] IV Site: [] Harris Catheter: [] - Assessment/Plan Antibiotics: [] Assessment/Plan: [] Active and Suspected Problems Subdural hematoma (Acute) BL Hx of craniotomy (Acute) BL on 02/15/20 at [facility] for BL subdural hematomas with brain compression Anemia (Acute) Dysphagia (Acute) Seizure disorder (Acute) due to BL SDH's with brain compressions Urine retention (Acute) LAE (left atrial enlargement) (Acute) mild Thrombocytopenia (Acute) Hyponatremia (Acute) uti with harris in place - ucx showing a susceptible ecoli. Will narrow to amoxicillin po for short course, planned stop date 03/04/20. Will follow
--- NOTE | 2020-03-01 10:19 | CASEMGMT ---
Social Work Pt continues to report he is going home after his neuro appt this date. Education has been provided to pt several times that he is not ready to DC home and if he choses to not return, it would be an AMA DC. Pt expressed understanding. Lilli Stokes, [employer]
--- NOTE | 2020-03-01 10:51 | CASEMGMT ---
Social Work SW and physician met with pt and to discuss recommendations to return and continue with nursing and rehab care after appt this date. Physician explained concerns with memory, infection, and level of assist pt needs currently. Pt became very agitated, sat up in bed angrily, and continued to reiterate no one has taken the time to explain to me what happened and why I'm here - I can't get any worse than being in this place. Physician and SW together and separately have each spoken with pt and to explain conditions, DC plans and recommendations throughout pt stay. Physician explained to s/s of UTI not resolving and when to present to ED, if needed, along with other recommendations when pt is home. SW explained since pt is leaving AMA, SW unable to order any HHC/OP therapy, nursing care or DME. Explained PCP would decide to order those modalities. Pt and both read and signed AMA paperwork. Copy provided to and original placed in chart. Lilli Stokes, ALEN MANUELW
--- NOTE | 2020-03-01 11:06 | PCM.DC ---
- Discharge Diagnoses Current Active Problems: Current Active and Chronic Problems Subdural hematoma (Acute) BL Hx of craniotomy (Acute) BL on 02/15/20 at [facility] for BL subdural hematomas with brain compression Anemia (Acute) BPH (benign prostatic hyperplasia) (Chronic) DM (diabetes mellitus), type 2 (Chronic) Dysphagia (Acute) Seizure disorder (Acute) due to BL SDH's with brain compressions History of ventriculoperitoneal shunting (Chronic) 2010 for NPH Urine retention (Acute) Cardiomyopathy (Chronic) non-ischemic. 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 Ablation for SVT in October 2010. 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 Has a 10 Pack year hx. Chronic anticoagulation (Chronic) on warfarin Non-compliance (Chronic) with diet Obesity (BMI 30.0-34.9) (Chronic) History of permanent cardiac pacemaker placement (Chronic) LVH (left ventricular hypertrophy) (Chronic) LAE (left atrial enlargement) (Acute) mild Thrombocytopenia (Acute) Hyponatremia (Acute) Chronic renal failure, stage 3 (moderate) (Chronic) AICD (automatic cardioverter/defibrillator) present (Chronic) Poor dentition (Chronic) UTI (urinary tract infection) (Acute) You will use the following diet at home:: Calorie/Carbohydrate Controlled (specify 1200, 1400, etc) - 2000 calorie low salt and low fat Your food should be the consistency of: Mechanical soft (ground) Your liquids should be the consistency of: Regular/Thin Discharge Activity: May Not Drive, May Shower, Use Walker Call your doctor if you observe: Fever of 101 or Higher, Inability to urinate, Shortness of breath, Dizziness, Fainting spells, Chest pain, Uncontrolled pain, - - Call your PCP if severe diarrhea ( > 5 stools a day), painful sores in the mouth, painful swallowing, rash or itching. Taking a probiotic such as Lactobacillus or Kefir can help with loose stools while taking antibiotics. Additional Instructions: 1. I do not feel that Juan is safe to go home at this point. He has poor safety awareness, poor memory and generalized weakness. He is at high risk of falling. 2. Juan does not completely empty his bladder when he urinates. There is as much as 1 liter left in the bladder after he is done. This is a risk factor for infections and also for worsening kidney failure. He does not tolerate the medications for prostate enlargement well because his BP drops a lot when he stands. hould follow up with a urologist because he may need surgery since he can no tolerate the medications. 3. He has very bad teeth. There are many missing and he also has broken teeth and cavities. This puts him at high risk for getting an infection in the blood and if this happens the shunt in his head and the pacemaker wires could become infected. He should see a dentist [place] to get his teeth taken care of. 4. His blood pressure drops significantly when he stands up.......this may be due to long-standing poorly controlled diabetes. He loses his balance when he is standing without assistance. He is at high risk for falls. I suggest you get a 3 in 1 toilet at a [facility] [employer]. This has grab bars on the sides to help him get off the toilet and it is also elevated. I also suggest you get grab bars in the shower if you do not already have them........the ones with the suction cups are not adequate to bear weight. 4. He needs more therapy. Maybe Dr. Partida can put in a referral for OP therapy. I would make an appt to see her [place]. 5. Because Juan is leaving against medical advice, he is non-compliant with doing 3 hours af therapy daily and he has had aggressive behavior with the staff.....going as far as taking a swing at a nurse we will be unable to accept him back to the rehab units at [facility]. If he fails at home he will likely need to go to a fci. 6. I am going to send a copy of the discharge instructions and the discharge summmary to Dr. Shepard and will try and talk to her on the phone today to explain Juan's situation. Pending Tests on Discharge: none Allergies/Adverse Reactions: Allergies ceftriaxone Allergy (Verified 01/26/15 13:00) Hives fish oil Allergy (Verified 02/13/15 07:50) Unknown Gadolinium-MRI Contrast Medium [CONTRAST] Allergy (Verified 02/13/15 07:50) Anaphylaxis Medications to take at Discharge Insulin U-500 [Humulin R U-500 (BKC)] 20 units SC BIDAC 01/26/15 Magnesium l-Lactate [Mag-Tab Sr] 84 mg PO DAILY #30 tablet.er 01/27/15 Glucosam/Mohamud-Msm1/C/Isac/Bosw [Glucosamine-Chondroitin Tablet] 1 each PO BID 02/13/15 Amoxicillin [Amoxil] 500 mg PO Q8 #21 cap 03/01/20 Atorvastatin Calcium [Lipitor] 80 mg PO QHS #60 tab 03/01/20 Carvedilol [Coreg (Beta Leigh)] 12.5 mg PO BID #60 tab 03/01/20 Cholecalciferol (VIT D3) [Vitamin D3] 1,000 unit PO DAILY #30 tab 03/01/20 Sertraline HCl [Zoloft] 50 mg PO DAILY #30 tab 03/01/20 Tamsulosin HCl [Flomax] 0.4 mg PO DAILY@1730 #30 cap 03/01/20 levETIRAcetam tablet [Keppra tablet] 1,000 mg PO BID@0800,2000 #60 tab 03/01/20 The following prescriptions were given: Amoxicillin [Amoxil] 500 mg PO Q8 #21 cap Transmission Status: Pending to [id number] Carvedilol [Coreg (Beta Leigh)] 12.5 mg PO BID #60 tab Transmission Status: Pending to [id number] Tamsulosin HCl [Flomax] 0.4 mg PO DAILY@1730 #30 cap Transmission Status: Pending to [facility][id number] levETIRAcetam tablet [Keppra tablet] 1,000 mg PO BID@0800,2000 #60 tab Transmission Status: Pending to [id number] Atorvastatin Calcium [Lipitor] 80 mg PO QHS #60 tab Transmission Status: Pending to [id number] Cholecalciferol (VIT D3) [Vitamin D3] 1,000 unit PO DAILY #30 tab Transmission Status: Pending to [facility][id number] Sertraline HCl [Zoloft] 50 mg PO DAILY #30 tab Transmission Status: Pending to [id number] Primary Care Physician: Ketty Partida DO [NON-STAFF] - Please follow up with your Primary Care Physician in: [place] Test Results: Test results from this visit will be discussed in further detail at your follow-up appointment, if applicable. Please Follow Up With: a urologist - for urine retention Please Follow Up With: neurosurgery Proposed Discharge Date: 03/01/20
--- NOTE | 2020-03-01 11:35 | DS.PCM_ITS ---
Discharge Date and Diagnosis - Problem List Patient Problems: Active and Suspected Problems Aggressive behavior (Acute) Cognitive dysfunction (Acute) Depression (Acute) Orthostatic hypotension (Acute) Date of Admission: 02/22/20 Date of Discharge: 03/01/20 - Against medical advice - Primary Discharge Diagnosis Acute Problems: Active Problems Subdural hematoma (Acute) BL acute on chronic Hx of craniotomy (Acute)BL on 02/15/20 at [facility] for BL subdural hematomas with brain compression Seizure disorder (Acute) due to BL SDH's with brain compression Cognitive dysfunction (Acute) Depression (Acute) Orthostatic hypotension (Acute) Aggressive behavior (Acute) Anemia (Acute) likely due to blood loss related to intracranial bleeding and BL craniotomies Dysphagia (Acute) Urine retention (Acute) UTI (urinary tract infection) related to Harris catheter - due to pansensitive E. Coli and Atopobium Vaginae - Secondary Discharge Diagnosis Chronic Problems: Chronic Problems Vitamin D deficiency (Chronic) Chronic progressive renal failure, stage 3 (moderate) (Chronic) BPH (benign prostatic hyperplasia) (Chronic) - with urine retention and obstructive uropathy DM (diabetes mellitus), type 2 (Chronic) - not adequately controlled History of ventriculoperitoneal shunting (Chronic) 2010 for NPH Cardiomyopathy (Chronic) non-ischemic. 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 Ablation for SVT in October 2010. 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 Has a 10 Pack year hx. Chronic anticoagulation (Chronic) - he was supratherapeutic when he presented to the ED with INR of 3.6 on warfarin Non-compliance (Chronic) with diet, blood sugar checks and likely medications Obesity (BMI 30.0-34.9) (Chronic) History of permanent cardiac pacemaker placement (Chronic) LVH (left ventricular hypertrophy) (Chronic) Chronic renal failure, stage 3 (moderate) (Chronic) AICD (automatic cardioverter/defibrillator) present (Chronic) Poor dentition (Chronic) Hospital Course and Treatment Imaging Results: Clinical Impression(s) from Imaging Studies Brain CT 02/28/20 10:51 IMPRESSION: Status post drainage of the bilateral subdural hematomas with residual small bilateral subdural hematomas with the acute bleed on chronic changes. No evidence of intracranial abscess. Findings suggestive of normal pressure hydrocephalus. Electronically Signed: Stevo Tiwari, at 13:03 EDT , Service support , Laboratory Last Values WBC 12.5 K/mm3 (4.4-11.0) H 02/28/20 11:56 RBC 3.13 M/mm3 (4.6-6.2) L 02/28/20 11:56 Hgb 9.2 g/dL (13.0-16.5) L 02/28/20 11:56 Hct 28.8 % (40-54) L 02/28/20 11:56 MCV 92.0 fL (80-94) 02/28/20 11:56 MCH 29.4 pg (27.0-32.0) 02/28/20 11:56 MCHC 31.9 g/dL (32-36) L 02/28/20 11:56 RDW Std Deviation 55.3 fl (35.1-43.9) H 02/28/20 11:56 RDW Coeff of Crys 16.3 % (11.6-14.6) H 02/28/20 11:56 Plt Count 197 K/mm3 (150-450) 02/28/20 11:56 MPV 9.1 fl (6.2-12.0) 02/28/20 11:56 Immature Gran % (Auto) 0.600 % (0.0-0.9) 02/28/20 11:56 Neut % (Auto) 84.1 % (47-70) H 02/28/20 11:56 Lymph % (Auto) 7.8 % (19-41) L 02/28/20 11:56 [place] % (Auto) 6.0 % (0-10) 02/28/20 11:56 Eos % (Auto) 1.0 % (0-5) 02/28/20 11:56 Baso % (Auto) 0.5 % (0-1) 02/28/20 11:56 Absolute Neuts (auto) 10.6 X10^3/uL (2.0-7.7) H 02/28/20 11:56 Absolute Lymphs (auto) 0.98 X10^3/uL (0.83-4.51) 02/28/20 11:56 Nucleated RBC % 0 % (0-5) 02/28/20 11:56 ESR 52 mm/hr (0-20) H 02/28/20 11:56 Sodium 135 mmol/L (136-145) L 02/28/20 11:56 Potassium 4.9 mmol/L (3.5-5.1) 02/28/20 11:56 Chloride 105 mmol/L (98-107) 02/28/20 11:56 Carbon Dioxide 25.0 mmol/L (21.0-32.0) 02/28/20 11:56 Anion Gap 5 (5-15) 02/28/20 11:56 BUN 18 mg/dL (7-18) 02/28/20 11:56 Creatinine 1.27 mg/dL (0.70-1.30) 02/28/20 11:56 Estim Creat Clear Calc 57.67 ml/min 02/28/20 11:56 Est GFR (MDRD) Af Amer 71 mL/min (>60) 02/28/20 11:56 Est GFR (MDRD) Non-Af 59 mL/min (>60) L 02/28/20 11:56 BUN/Creatinine Ratio 14.2 RATIO (10-20) 02/28/20 11:56 Glucose 202 mg/dL (74-106) H 02/28/20 11:56 Hemoglobin A1c 7.7 % (3.8-5.6) H 02/23/20 05:24 Lactic Acid 1.5 mmol/L (0.4-1.9) 02/27/20 14:00 Calcium 8.3 mg/dL (8.5-10.1) L 02/28/20 11:56 Phosphorus 2.8 mg/dL (2.5-4.9) 02/28/20 11:56 Magnesium 1.8 mg/dL (1.6-2.6) 02/28/20 11:56 Total Bilirubin 0.80 mg/dL (0.20-1.00) 02/28/20 11:56 Direct Bilirubin 0.15 mg/dL (0.00-0.30) 02/23/20 05:41 AST 13 U/L (15-37) L 02/28/20 11:56 ALT 11 U/L (16-61) L 02/28/20 11:56 Alkaline Phosphatase 109 U/L (45-117) 02/28/20 11:56 C-React Prot Ext Range 151.00 mg/L (0.0-3.0) H 02/28/20 11:56 Total Protein 7.2 g/dL (6.4-8.2) 02/28/20 11:56 Albumin 2.4 g/dL (3.2-5.0) L 02/28/20 11:56 Globulin 4.8 g/dL (2.2-4.2) H 02/28/20 11:56 Albumin/Globulin Ratio 0.5 RATIO (0.9-2.4) L 02/28/20 11:56 Lipase 167 U/L (73-393) 02/27/20 10:20 Vitamin D 25-Hydroxy 12.3 ng/mL 02/27/20 10:20 TSH 2.08 uIU/mL (0.358-3.74) 02/27/20 10:20 Free T4 1.17 ng/dL (0.76-1.46) 02/27/20 10:20 Urine Color Yellow (Yellow) 02/27/20 14:30 Urine Clarity Sl. Cloudy (Clear) 02/27/20 14:30 Urine pH 6.0 (5.0 - 8.0) 02/27/20 14:30 Ur Specific [place] 1.015 (1.002-1.030) 02/27/20 14:30 Urine Protein 100 mg/dl (Negative) H 02/27/20 14:30 Urine Glucose (UA) 100 mg/dl (Normal) H 02/27/20 14:30 Urine Ketones Negative mg/dl (Negative) 02/27/20 14:30 Urine Occult Blood 150 /ul (Negative) H 02/27/20 14:30 Urine Nitrite Positive (Negative) H 02/27/20 14:30 Urine Bilirubin Negative mg/dL (Negative) 02/27/20 14:30 Urine Urobilinogen Normal mg/dl (Normal) 02/27/20 14:30 Ur Leukocyte Esterase 500 /ul (Negative) H 02/27/20 14:30 Urine RBC 10-25 SEEN /hpf (0-5) 02/27/20 14:30 Urine WBC 50-100 SEEN /hpf (0-5) 02/27/20 14:30 Ur Squamous Epith Cells 0-5 SEEN /hpf (0-5) 02/27/20 14:30 Urine Bacteria 1+ /hpf (None Seen) 02/27/20 14:30 Urine Mucus 0 SEEN /hpf (<or=2+) 02/27/20 14:30 POC Glucose 219 mg/dL (70-110) H 03/01/20 07:00 Microbiology 02/27/20 14:30 Urine Catheter - Harris Urine Culture - Final Presumptive E. coli 02/27/20 14:30 Blood Culture (Wb) - Right Hand Blood Culture - Preliminary No growth in 48 hours. 02/27/20 14:00 Blood Culture (Wb) - Right Forearm Blood Culture - Preliminary No growth in 48 hours. 02/24/20 12:15 Urine, Catheterized Urine Culture - Final Atopobium vaginae Dr. Praful Canales - ID Operations: None Procedures: - - insertion of Harris catherter Summary of Care Provided: Mr. Proctor is a 74 YOM with a past medical history of hypertension, diabetes mellitus type 2, BPH, idiopathic normal pressure hydrocephalus, history of TRANSPORTATION MODELER shunt in 2010, obesity, VTE with PE and DVT on chronic anticoagulation with warfarin, hx of IVC filter insertion, ventricular ectopy, SVT, 2 ablations for ventricular ectopy and one ablation for SVT, history of pacemaker/AICD implantation, nonischemic cardiomyopathy with a 45% ejection fraction in 2014, chronic renal failure stage III, tobacco dependence in remission (quit in 1971), left ventricular hypertrophy and mild left atrial enlargement who presented to the emergency department at [facility] on 02/13/2020 with confusion, dysarthria and twitching of his face. CT scan of the head showed bilateral subdural hematomas and he was transferred to [facility]. INR at that time was 3.6. His stated that he had hit his head 4-6 weeks prior to ED visit. At presentation to [facility] he had continuous left facial twitching and was started on Keppra for seizures. On 02/15/2020 he underwent bilateral craniotomies to evacuate the hematomas and relieve brain compression. He was transferred to the acute rehab unit at [facility] on 02/22/2020 for greater than 3 hours of therapy daily to restore him at or near his prior level of independence. He was agitated with frequent outbursts of foul language directed at staff and he had aggressive behavior. He took a swing at one of the nurses. He made no eye contact when talked to and he had flat affect when he was not agitated. He was started on Sertraline for depression. He was rude and verbally abusive with staff and he refused to do his required 3 hours of therapy frequently. He was often heard telling the therapists to get the F___ out of his room. His was called in for a meeting to discuss his behavior on 02/24/20. The charge nurse, VEE and myself were present at the meeting in addition to Juan and his Fiona. Post void residuals were as high as 1 liter repeatedly and a Harris catheter was inserted. He had recently been started on Flomax 0.4 mg daily while at [facility]. Flomax was increased to 0.8 mg daily. UA at the time of insertion of the Harris catheter showed no WBC's and no bacteria but the urine culture grew greater than 100,000 colonies of Atopobium Vaginae which is a anaerobe. I presumed this bacteria may have gotten in the urine from Bacteremic spread. A CT of the brain with and without contrast was done and it was nega tive for abscess. He had no abd pain and denied sore throat, mouth pain, cough. He persistently c/o headache but he had no nuchal rigidity. He has very poor dentition with many missing teeth and broken teeth with caries. He was started on antibiotics and Dr. Canales was consulted because he has a TRANSPORTATION MODELER shunt and a PM/AICD and he is at risk for getting these devices infected if he is bacteremic. On 02/27/2020 his urine was very concentrated and cloudy. Another UA was obtained and this time showed 50-100 WBCs and 10-25 RBCs with 1+ bacteria and positive nitrites. He had orthostatic hypotension and he was started on IV fluids in addition to intravenous antibiotics. The second urine culture grew greater than 100,000 colonies of a pansensitive E. coli. Dr. Canales discontinued IV antibiotics and the patient was started on amoxicillin prior to DC. On 03/01/20 Mr. Proctor was scheduled for an appt with the neurosurgeon. He informed us that he would be going home after his appt and would not be returning to the rehab unit. The SW and I talked with Juan and his and explained that we did not feel he was safe to go home. He has very poor memory and safety awareness. I had to explain to him everyday what happened to him, why he came to rehab and what we expected of him in rehab. The speech therapist wrote out for him what was expected of him in rehab and placed it in a memory book he could refer to when needed. He refused to look at the memory book. On 02/29/20 speech therapy was discontinued because he was so verbally abusive and refused to do therapy because it was Bullshit. He lose his balance when he is trying to pull up his pants after using the BR and is at high risk for falls. We explained to Juan and his Fiona that he was being discharged against medical advise. They were both given a paper explaining what this meant and he threw his on the bed and refused to read it. Fiona read the paper and signed it. At one point he rapidly sat up in his bed and lunged toward me acting like he meant to hit me. I explained to them that because he would not do the required 3 hours of therapy daily, he was repeatedly verbally abusive and he was threatening with aggressive behavior he would not be accepted back to [facility] inpt rehab if he failed at home and would likely need to go to a NH or a geropsych unit going forward. He was given prescriptions and discharge instructions. I told them they should follow up with Dr. Partida, his PCP, as soon as possible because maybe she would be willing to order OP or HHC therapy for him. Because he left [place] these services and DME were not arranged for him prior to DC. I called the office of Dr. Partida on the day of DC to discuss Mr. Proctor and left a VM with her nurse asking Dr. Partida to call me back at her convenience to discuss Mr. Proctor's condition upon leaving [facility]. Because of his aggressive, threatening behavior towards me he was not examined on the day of DC. The following is the exam I performed on 02/28 when he was calmer. He looks better today. He has color in his face and does not appear so weak. He is complaining about the clear liquids. Not as irritable or agitated today, just complaining. Slept well last night. MM are moist. The urine in the harris tubing is pale yellow today and more clear. Lungs - CTA HRRR, no gallop abd - soft and NT there is less edema in the left leg today.....he had it elevated for long periods of time yesterday. No edema in the RLE no rashes, no skin breakdown. No erythema or DC from the incisions No focal neurologic deficits No nuchal rigidity. This note was generated with [employer] dictation software. It may contain incorrect words, spelling, and punctuation that were not noted in checking the note before signing. Patient Problems: Active and Suspected Problems Aggressive behavior (Acute) Cognitive dysfunction (Acute) Depression (Acute) Orthostatic hypotension (Acute) - Physical Exam Vitals/I&O's: Vital Signs Temp Pulse Resp BP Pulse Ox 98.5 F 83 12 147/73 H 95 03/01/20 08:30 03/01/20 08:30 03/01/20 08:30 03/01/20 08:30 03/01/20 08:30 Oxygen Delivery Method Room Air Weight: 255 lb 3.208 oz Body Mass Index (BMI) 33.6 Orthostatic Vital Signs Start: 02/24/20 07:26 Freq: q24h Status: Active Protocol: Activity Type Activity Date Activity User E-Sign Co-Sign Detail Recorded Client Recorded Date Recorded By Document 03/01/20 04:54 [facility] [id number] 03/01/20 04:56 [facility] 03/01/20 04:54 Orthostatic Vitals Standing -Blood Pressure (90/60-120/80 mm Hg) 114/64 -Extremity Use Left Arm -Pulse Rate (60-100 beats/min) 89 Sitting -Blood Pressure (90/60-120/80 mm Hg) 152/85 H -Extremity Use Left Arm -Pulse Rate (60-100 beats/min) 88 Lying -Blood Pressure (90/60-120/80 mm Hg) 147/73 H -Extremity Use Left Arm -Pulse Rate (60-100 beats/min) 85 Intake and Output for Last 24 Hours 02/28/20 02/29/20 03/01/20 23:59 23:59 23:59 Intake Total 4946.92 / 4946.92 3151.00 / 3151.00 464 / 464 Output Total 3325 / 3325 1500 / 1500 1025 / 1025 Balance 1621.92 / 1621.92 1651.00 / 1651.00 -561 / -561 Microbiology Past 72 Hours 02/27/20 14:30 Urine Catheter - Harris Urine Culture - Final Presumptive E. coli 02/27/20 14:30 Blood Culture (Wb) - Right Hand Blood Culture - Preliminary No growth in 48 hours. 02/27/20 14:00 Blood Culture (Wb) - Right Forearm Blood Culture - Preliminary No growth in 48 hours. 02/24/20 12:15 Urine, Catheterized Urine Culture - Final Atopobium vaginae Laboratory Results 02/29/20 16:28: POC Glucose 201 H 02/29/20 21:18: POC Glucose 246 H 03/01/20 07:00: POC Glucose 219 H Current Medications Hydrocodone Bitart/Acetaminophen ([place] 5mg-325mg) 1 tablet PO Q4H PRN PRN PRN Reason: Pain Score 1-5/10 Amoxicillin (Amoxil) 500 mg PO Q8 [facility] Stop: 03/04/20 12:00 Atorvastatin Calcium (Lipitor) 40 mg PO QHS@1999 [facility] Last Admin: 02/29/20 20:50 Dose: 40 mg Documented by: Bisacodyl (Dulcolax) 10 mg RECTAL .PRN X 1 PRN PRN Reason: Constipation Carvedilol (Coreg) 12.5 mg PO BID@ [facility] Last Admin: 03/01/20 08:05 Dose: 12.5 mg Documented by: Cholecalciferol (Vitamin D (25mcg)) 1,000 unit PO DAILY [facility] Last Admin: 03/01/20 08:05 Dose: 1,000 unit Documented by: Dextrose (D50w Syringe) 0 gm IV X1 PRN; Protocol PRN Reason: Hypoglycemia Fentanyl Citrate (Sublimaze (100mcg Ampule)) 25 mcg IV Q4H PRN PRN PRN Reason: pain 6-10 Last Admin: 02/28/20 14:11 Dose: 25 mcg Documented by: Glucagon () 1 mg IM .X1 PRN PRN Reason: Hypoglycemia Insulin Human Lispro (Humalog Kwikpen ([facility])) 0 unit SC TIDAC [facility]; Protocol Last Admin: 03/01/20 08:04 Dose: 2 u Documented by: Insulin Lispro Protam/Lispro Human (Humalog Mix 75-25 Kwikpen ([facility])) 18 unit SC SUPPER [facility] Last Admin: 02/29/20 17:08 Dose: 18 u Documented by: Insulin Lispro Protam/Lispro Human (Humalog Mix 75-25 Kwikpen ([facility])) 32 unit SC BREAKFAST [facility] Last Admin: 03/01/20 08:05 Dose: 32 u Documented by: Levetiracetam (Keppra Tablet) 1,000 mg PO BID@0800,2000 [facility] Last Admin: 03/01/20 08:05 Dose: 1,000 mg Documented by: Loperamide HCl (Imodium) 2 mg PO Q4H PRN PRN PRN Reason: Diarrhea Magnesium Hydroxide (Milk Of Magnesia) 30 ml PO .PRN X 1 PRN PRN Reason: Constipation Menthol (Bengay Vanishing Scent) 1 applic TOPICAL 4X/DAY PRN PRN PRN Reason: muscle pain Last Admin: 02/25/20 11:56 Dose: 1 applic Documented by: Nitroglycerin (Nitrostat) 0.4 mg SUBLINGUAL Q5M PRN PRN Reason: CARDIAC/CHEST PAIN Prochlorperazine Edisylate (Compazine Iv) 5 mg IV Q6H PRN PRN PRN Reason: NAUSEA/VOMITING Last Admin: 02/28/20 07:52 Dose: 5 mg Documented by: Sertraline HCl (Zoloft) 50 mg PO DAILY [facility] Last Admin: 03/01/20 08:05 Dose: 50 mg Documented by: Sodium Chloride () 250 ml IV PRN PRN PRN Reason: IV flush Last Admin: 02/29/20 17:09 Dose: 250 ml Documented by: Tamsulosin HCl (Flomax) 0.8 mg PO DAILY@1730 [facility] Last Admin: 02/29/20 18:01 Dose: 0.8 mg Documented by: Discharge Activity: May Not Drive, May Shower, Use Walker Call your doctor if you observe: Fever of 101 or Higher, Inability to urinate, Shortness of breath, Dizziness, Fainting spells, Chest pain, Uncontrolled pain, - - Call your PCP if severe diarrhea ( > 5 stools a day), painful sores in the mouth, painful swallowing, rash or itching. Taking a probiotic such as Lactobacillus or Kefir can help with loose stools while taking antibiotics. Home Medications: Medications to take at Discharge Insulin U-500 [Humulin R U-500 ([facility])] 20 units SC BIDAC 01/26/15 Magnesium l-Lactate [Mag-Tab Sr] 84 mg PO DAILY #30 tablet.er 01/27/15 Glucosam/Mohamud-Msm1/C/Isac/Bosw [Glucosamine-Chondroitin Tablet] 1 each PO BID 02/13/15 Amoxicillin [Amoxil] 500 mg PO Q8 #21 cap 03/01/20 Atorvastatin Calcium [Lipitor] 80 mg PO QHS #60 tab 03/01/20 Carvedilol [Coreg (Beta Leigh)] 12.5 mg PO BID #60 tab 03/01/20 Cholecalciferol (VIT D3) [Vitamin D3] 1,000 unit PO DAILY #30 tab 03/01/20 Sertraline HCl [Zoloft] 50 mg PO DAILY #30 tab 03/01/20 Tamsulosin HCl [Flomax] 0.4 mg PO DAILY@1730 #30 cap 03/01/20 levETIRAcetam tablet [Keppra tablet] 1,000 mg PO BID@0800,2000 #60 tab 03/01/20 Following Prescriptions Were Given to Patient: Amoxicillin [Amoxil] 500 mg PO Q8 #21 cap Transmission Status: Received by [id number] Carvedilol [Coreg (Beta Leigh)] 12.5 mg PO BID #60 tab Transmission Status: Received by [facility][id number] Tamsulosin HCl [Flomax] 0.4 mg PO DAILY@1730 #30 cap Transmission Status: Received by [facility][id number] levETIRAcetam tablet [Keppra tablet] 1,000 mg PO BID@0800,2000 #60 tab Transmission Status: Received by [facility][id number] Atorvastatin Calcium [Lipitor] 80 mg PO QHS #60 tab Transmission Status: Received by [facility][id number] Cholecalciferol (VIT D3) [Vitamin D3] 1,000 unit PO DAILY #30 tab Transmission Status: Received by [facility][id number] Sertraline HCl [Zoloft] 50 mg PO DAILY #30 tab Transmission Status: Received by [facility][id number] Primary Care Physician: Ketty Partida DO [NON-STAFF] - Please follow up with your Primary Care Physician in: [place] Please Follow Up With: a urologist - for urine retention Please Follow Up With: neurosurgery Disposition: Against Medical Advice Minutes spent on discharge:: 60 Patient Condition:: Guarded Medical Necessity - Tobacco Use Smoking Status: Former smoker - quit in 1971 Tobacco Use: Cigarettes Meaningful Use Info Meaningful Use Diagnoses (Choose all that apply): None applicable Inpatient E&M: 26548 Disch Hosp
--- NOTE | 2020-03-01 12:00 | NURSING ---
pt ama discharged via car transport with .
== END 2020-03-01 12:00 | disposition left against medical advice (07) | DRG 56 ==
PROVIDERS: Admitting Provider Internal Medicine; PCP Family Medicine Geriatric Medicine; Visit Provider Internal Medicine
DX: I69.222 Dysarthria following other nontraumatic intracranial hemorrhage (principal); G93.5 Compression of brain; T83.518A Infection and inflammatory reaction due to other urinary catheter, initial encounter; N39.0 Urinary tract infection, site not specified; I13.0 Hypertensive heart and chronic kidney disease with heart failure and stage 1 through stage 4 chronic kidney disease, or unspecified chronic kidney disease; G91.2 (Idiopathic) normal pressure hydrocephalus; I82.502 Chronic embolism and thrombosis of unspecified deep veins of left lower extremity; I42.8 Other cardiomyopathies; N13.8 Other obstructive and reflux uropathy; I69.291 Dysphagia following other nontraumatic intracranial hemorrhage; I69.298 Other sequelae of other nontraumatic intracranial hemorrhage; F32.9 Major depressive disorder, single episode, unspecified; I69.219 Unspecified symptoms and signs involving cognitive functions following other nontraumatic intracranial hemorrhage; Z23 Encounter for immunization; R13.12 Dysphagia, oropharyngeal phase; E11.22 Type 2 diabetes mellitus with diabetic chronic kidney disease; I50.9 Heart failure, unspecified; N18.30 Chronic kidney disease, stage 3 unspecified; G40.909 Epilepsy, unspecified, not intractable, without status epilepticus; E66.9 Obesity, unspecified; E11.65 Type 2 diabetes mellitus with hyperglycemia; N40.1 Benign prostatic hyperplasia with lower urinary tract symptoms; R39.14 Feeling of incomplete bladder emptying; Z98.890 Other specified postprocedural states; Z98.2 Presence of cerebrospinal fluid drainage device; Z87.891 Personal history of nicotine dependence; Z91.11 Patient's noncompliance with dietary regimen; Z68.33 Body mass index [BMI] 33.0-33.9, adult; Z95.810 Presence of automatic (implantable) cardiac defibrillator; D69.6 Thrombocytopenia, unspecified; D64.9 Anemia, unspecified; E55.9 Vitamin D deficiency, unspecified; Y73.8 Miscellaneous gastroenterology and urology devices associated with adverse incidents, not elsewhere classified; Y92.129 Unspecified place in nursing home as the place of occurrence of the external cause; R45.1 Restlessness and agitation; B96.20 Unspecified Escherichia coli [E. coli] as the cause of diseases classified elsewhere
CPT/HCPCS: 36415; 70470; 80048; 80053; 80076; 81001; 82306; 82962; 83036; 83605; 83690; 83735; 84100; 84439; 84443; 85025; 85027; 85652; 86140; 87040; 87077; 87086; 87088; 87186; 92507; 92523; 94762; 97110; 97116; 97162; 97166; 97530; 97535; 97802; G0008; J7030; J7040; J7050; Q9967; 90686; J0295